=== PATIENT | female | born 1965 | race Caucasian/White ===

== ENCOUNTER 2024-08-04 13:29 | Emergency (ER) | payer OTHER ==
[2024-08-04] MEDS ORDERED: KETOROLAC 30 MG/ML INJ ONE (15:23)
[2024-08-04] MEDS ORDERED: dexAMETHasone 10 MG/ML VIAL ONE (15:23)
[2024-08-04] MEDS ORDERED: HYDROCODONE/APAP 5/325 MG TAB ONE (15:24)
--- NOTE | 2024-08-04 15:41 | RAD REPORT ---
EXAMINATION: CT LUMBAR SPINE WITHOUT CONTRAST CLINICAL INDICATION: Female, 59 years old. Lower back pain;Pain TECHNIQUE: Axial CT images were obtained through the lumbar spine in soft tissue and bone windows wit hout intravenous contrast. Coronal and Sagittal reformatted images were created from the data set. One or more of the following dose reduction techniques were used: Automated exposure control, adjustm ent of the mA and/ or kV according to patient size, and/or iterative reconstruction. Unless otherwise specified, incidental findings do not require dedicated imaging follow-up. COMPARISON: No prior exam. FINDINGS: For purposes of this dictation, it is assumed that there are 5 non rib-bearing lumbar type vertebrae, and the most caudal fully segmented lumbar vertebra is labeled L5. ALIGNMENT: The lumbar spine demonstrates normal alignment without scoliosis or spondylolisthesis. BONES: No significant soft tissue abnormalities. No aggressive osseous lesions. DISCS: Intervertebral disc space heights are maintained. LEVELS: Mild posterior disc bulging lower lumbar levels. 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 IMPRESSION: No acute lumbar spine abnormalities. Mild lower lumbar spondylosis. Nonemergent MRI lumbar spine follow-up would be suggested.
--- NOTE | 2024-08-04 16:57 | EDPHYS ---
Physician Documentation [facility] Name: Aubree Zimmer Age: 59 yrs Sex: Female : 1965 Arrival Date: 08/04/2024 Time: 13:29 Bed 18 Private MD: ED Physician Nikolay Gayle HPI: 08/04 16:37 This 59 yrs old Female presents to ER via Ambulatory with complaints of Hip Pain - rn right, Knee Pain - right. 16:37 The patient or guardian reports pain. Onset: The symptoms/episode began/occurred rn yesterday. Severity of symptoms: At their worst the symptoms were moderate, in the emergency department the symptoms are unchanged. The patient has experienced a previous episode. Patient reports low back pain that radiates to the right knee, no trauma or fall. No fever or chills. No injury at all. Has had sciatica on the left side, now having pain on the right side. No bowel or bladder issues. No weakness of lower extremities.. Historical: - Allergies: 14:38 ambien; ss 14:38 tramadol; ss 14:38 Trazodone; ss - PMHx: 14:38 acid reflux; Depression; ss - Immunization history:: Adult Immunizations unknown. - Infectious Disease History:: Denies. - Family history:: not pertinent. - Hospitalizations: : No recent hospitalization is reported. - Social history:: Smoking status: Patient denies any tobacco usage or history of. ROS: 16:37 Constitutional: Negative for fever, chills, and weight loss, Cardiovascular: Negative rn for chest pain, palpitations, and edema, Respiratory: Negative for shortness of breath, cough, wheezing, and pleuritic chest pain, Abdomen/GI: Negative for abdominal pain, nausea, vomiting, diarrhea, and constipation, Back: Positive for low back pain that radiates to the right knee MS/Extremity: Negative for injury and deformity, Exam: 16:55 Constitutional: This is a well developed, well nourished patient who is awake, alert, rn and in no acute distress. Back: No spinal tenderness. No costovertebral tenderness. Full range of motion. MS/ Extremity: Pulses equal, no cyanosis. Neurovascular intact. Full, normal range of motion. Equal circumference. Neuro: Awake and alert, GCS 15, oriented to person, place, time, and situation. Motor strength 5/5 in all extremities. Sensory grossly intact. Cerebellar exam normal. Vital Signs: 14:36 BP 126 / 95; Pulse 90; Resp 17; Temp 98.7(O); Pulse Ox 97% on R/A; Weight 63.5 kg; ss Height 5 ft. 3 in. ; Pain 9/10; 15:49 BP 103 / 57; Pulse 79; Resp 20; Pulse Ox 100% ; kj2 16:15 BP 105 / 58; Pulse 78; Resp 18; Pulse Ox 100% on R/A; kj2 17:06 BP 118 / 72; Pulse 76; Resp 18; Temp 98.2; Pulse Ox 100% on R/A; kj2 14:36 Body Mass Index 24.80 (63.50 kg, 160.02 cm) ss 14:36 Pain Scale: Adult ss MDM: 13:39 Medical Screening Exam initiated rn 16:55 Differential diagnosis: bursitis, arthritis, strain, Radiculopathy, sciatica. Data rn reviewed: vital signs, nurses notes, old medical records, radiologic studies, CT scan, and as a result, I will discharge patient. Counseling: I had a detailed discussion with the patient and/or guardian regarding the historical points, exam findings, and any diagnostic results supporting the discharge/admit diagnosis, radiology results, the need for outpatient follow up, to return to the emergency department if symptoms worsen or persist or if there are any questions or concerns that arise at home. Special discussion: I discussed with the patient/guardian in detail that at this point there is no indication for admission to the hospital. It is understood, however, that if the symptoms persist or worsen the patient needs to return immediately for re-evaluation. 08/04 14:42 Order name: CT Lumbar Spine Wo Con; Complete Time: 15:58 rn Administered Medications: 15:47 Drug: HYDROcodone-acetaminophen PO 5 mg-325 mg 1 tabs PO once Route: PO; kj2 17:07 Follow up: Response: No adverse reaction kj2 15:48 Drug: Ketorolac IM 30 mg IM once Route: IM; Site: left deltoid; kj2 17:07 Follow up: Response: No adverse reaction kj2 15:48 Drug: Dexamethasone IM 10 mg IM once Route: IM; Site: right deltoid; kj2 17:07 Follow up: Response: No adverse reaction kj2 Disposition Summary: 08/04/24 16:56 Discharge Ordered Notes: Location: Home rn Problem: new rn Symptoms: have improved rn Condition: Stable rn Diagnosis - Radiculopathy, lumbosacral region rn Followup: rn - With: Private Physician - When: As needed - Reason: Recheck today's complaints, Re-evaluation by your physician Discharge Instructions: - Discharge Summary Sheet rn - Lumbosacral Radiculopathy rn Forms: - Medication Reconciliation Form rn - Antibiotic collections attorney - Prescription Opioid Use rn - Patient Portal Instructions rn - Leadership Thank You Letter rn Prescriptions: - gabapentin 100 mg Oral capsule - take 1 capsule ORAL route 2 times per day As needed; 14 capsule; Refills: 0, rn Product Selection Permitted - Cyclobenzaprine 10 mg Oral tablet - take 1 tablet ORAL route every 8-12 hours As needed; 10 tablet; Refills: 0, rn Product Selection Permitted - Medrol ([place]) 4 mg Oral Tablets, Dose Pack - take 1 tablet ORAL route as directed - follow package instructions; 1 packet; rn Refills: 0, Product Selection Permitted Signatures: Dispatcher [employer] Nikolay Amaro MD MD rn Blanchard, Shelby, RN RN Corinne Schuster RN RN kj2
--- NOTE | 2024-08-04 16:57 | ER ---
Nurse's Notes [facility] Name: Aubree Zimmer Age: 59 yrs Sex: Female : 1965 Arrival Date: 08/04/2024 Time: 13:29 Bed 18 Private MD: Diagnosis: Radiculopathy, lumbosacral region Presentation: 08/04 14:37 Chief complaint: Patient states: Pain to R hip that radiates down to R knee that began ss this morning. Coronavirus screen: Client denies travel out of the [place] in the last 14 days. Ebola Screen: Patient denies exposure to infectious person. Patient denies travel to an Ebola-affected area in the 21 days before illness onset. Initial Sepsis Screen: Does the patient meet any 2 criteria? No. Patient's initial sepsis screen is negative. Does the patient have a suspected source of infection? No. Patient's initial sepsis screen is negative. Risk Assessment: Do you want to hurt yourself or someone else? Patient reports no desire to harm self or others. Onset of symptoms was August 04, 2024. 14:37 Method Of Arrival: Ambulatory ss 14:37 Acuity: HELIO 3 ss Historical: - Allergies: 14:38 ambien; ss 14:38 tramadol; ss 14:38 Trazodone; ss - PMHx: 14:38 acid reflux; Depression; ss - Immunization history:: Adult Immunizations unknown. - Infectious Disease History:: Denies. - Family history:: not pertinent. - Hospitalizations: : No recent hospitalization is reported. - Social history:: Smoking status: Patient denies any tobacco usage or history of. Screenin:34 [facility] ED Fall Risk Assessment (Adult) History of falling in the last 3 months, kj2 including since admission No falls in past 3 months (0 pts) Confusion or Disorientation No (0 pts) Intoxicated or Sedated No (0 pts) Impaired Gait No (0 pts) Mobility Assist Device Used No (0 pt) Altered Elimination No (0 pt) Score/Fall Risk Level 0 - 2 = Low Risk Maintained a safe environment, Hourly rounding (assess needs \T\ fall precautionary measures) done. Abuse screen: Denies threats or abuse. Denies injuries from another. Nutritional screening: No deficits noted. Tuberculosis screening: No symptoms or risk factors identified. Assessment: 15:15 General: Appears in no apparent distress. Behavior is calm, cooperative. Pain: kj2 Complains of pain in right hip Pain currently is 8 out of 10 on a pain scale. Neuro: Level of Consciousness is awake, alert, obeys commands, Oriented to person, place, time, situation. Cardiovascular: Patient's skin is warm and dry. Respiratory: Airway is patent Respiratory effort is even, unlabored. GI: No signs and/or symptoms were reported involving the gastrointestinal system. : No signs and/or symptoms were reported regarding the genitourinary system. 16:15 Reassessment: Patient appears in no apparent distress at this time. Patient and/or kj2 family updated on plan of care and expected duration. Pain level reassessed. Patient is alert, oriented x 3, equal unlabored respirations, skin warm/dry/pink. 17:06 Reassessment: Patient appears in no apparent distress at this time. Patient and/or kj2 family updated on plan of care and expected duration. Pain level reassessed. Patient is alert, oriented x 3, equal unlabored respirations, skin warm/dry/pink. Vital Signs: 14:36 BP 126 / 95; Pulse 90; Resp 17; Temp 98.7(O); Pulse Ox 97% on R/A; Weight 63.5 kg; ss Height 5 ft. 3 in. ; Pain 9/10; 15:49 BP 103 / 57; Pulse 79; Resp 20; Pulse Ox 100% ; kj2 16:15 BP 105 / 58; Pulse 78; Resp 18; Pulse Ox 100% on R/A; kj2 17:06 BP 118 / 72; Pulse 76; Resp 18; Temp 98.2; Pulse Ox 100% on R/A; kj2 14:36 Body Mass Index 24.80 (63.50 kg, 160.02 cm) ss 14:36 Pain Scale: Adult ss ED Course: 13:33 Patient arrived in ED. im 13:39 Nikolay Gayle MD is Attending Physician. rn 14:38 Triage completed. ss 14:38 Arm band placed on right wrist. ss 15:15 Patient has correct armband on for positive identification. Bed in low position. Call kj2 light in reach. Provided Education on: call light. 15:17 Corinne Roblero RN is Primary Nurse. kj2 15:33 CT Lumbar Spine Wo Con In Process Unspecified. EDMS 15:35 No provider procedures requiring assistance completed. kj2 Administered Medications: 15:47 Drug: HYDROcodone-acetaminophen PO 5 mg-325 mg 1 tabs PO once Route: PO; kj2 17:07 Follow up: Response: No adverse reaction kj2 15:48 Drug: Ketorolac IM 30 mg IM once Route: IM; Site: left deltoid; kj2 17:07 Follow up: Response: No adverse reaction kj2 15:48 Drug: Dexamethasone IM 10 mg IM once Route: IM; Site: right deltoid; kj2 17:07 Follow up: Response: No adverse reaction kj2 Medication: 15:34 VIS not applicable for this client. kj2 Outcome: 16:56 Discharge ordered by . rn 17:43 Patient left the ED. kj2 Signatures: Dispatcher [employer] EDMS Nikolay Gayle MD MD rn Blanchard, Shelby, RN RN Cadence Valdez Krystal, RN RN kj2
[2024-08-04 17:56] VITALS: O2SAT 100
[2024-08-04 17:58] VITALS: BP 118/72; TEMP 98.2
== END 2024-08-04 17:43 | disposition home or self-care (01) ==
LOC: ER 13:29
DX: M54.17 Radiculopathy, lumbosacral region (principal)
CPT/HCPCS: 72131; 96372; 99284; J1100

== ENCOUNTER 2024-10-13 12:07 | Emergency (ER) | payer OTHER, SELFPAY ==
--- OUTSIDE RECORDS SUMMARY | 2024-10-13 12:16 | XMS REPORT | Continuity of Care Document ---
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 noon and 1 capsule in the evening. [facility] NIACIN TR SUSTAINED RELEASE 500 mg SR tablet 3- 00:00: 00 09-26 00:00 :00 No [id number] TAKE 1 TABLET BY MOUTH EVERYDAY AT BEDTIME [facility] SERTraline 100 mg tablet 1-31 00:00: 00 12-16 00:00 :00 No [id number] TAKE 1 AND 1/2 TABLETS BY MOUTH DAILY [facility] omeprazole 40 mg capsule 2021-06 2-22 00:00: 00 Yes [id number] 40mg Take 1 capsule by mouth in the morning. [facility] PREGABALIN 25 mg capsule 2021-06 2-14 00:00: 00 09-16 00:00 :00 No [id number] TAKE 1 CAPSULE BY MOUTH THREE TIMES A DAY [facility] buPROPion XL 150 mg 24 hr tablet 2021-06 1-10 00:00: 00 09-16 00:00 :00 No [id number] 150mg Take 1 tablet by mouth in the morning. Need appt for further refills. [facility] DOXYCYCLINE HYCLATE 50 mg capsule 2021-06 0-13 00:00: 00 12-16 00:00 :00 No [id number] TAKE 1 CAPSULE BY MOUTH EVERY 12 HOURS. [facility] SERTraline 100 mg tablet 9-12 00:00: 00 07-26 00:00 :00 No [id number] TAKE 1 AND 1/2 TABLETS BY MOUTH DAILY [facility] omeprazole 40 mg capsule 7-27 00:00: 00 06-16 00:00 :00 No [id number] 40mg Take 1 capsule by mouth in the morning. [facility] pregabalin (LYRICA) 25 mg capsule 6-21 00:00: 00 06-08 00:00 :00 No [id number] 25mg Take 1 capsule by mouth 3 (three) times daily. [facility] cholestyram ine 4 gram powder 11-15 00:00: 00 12-16 00:00 :00 No [id number] Take 1 scoop QID, between meals [facility] buPROPion XL 150 mg 24 hr tablet 11-15 00:00: 00 05-05 00:00 :00 No [id number] 150mg Take 1 tablet by mouth daily. [facility] gabapentin 300 mg capsule 11-15 00:00: 00 12-14 00:00 :00 No [id number] 300mg Take 1 capsule by mouth 3 (three) times daily. [facility] fludrocorti sone 0.1 mg tablet -06 00:00: 00 12-16 00:00 :00 No [id number] .1mg Take 1 tablet by mouth daily. Appointmen t needed for further refills. Please contact office [facility] MIDODRINE 10 mg tablet 4-05 00:00: 00 12-16 00:00 :00 No [id number] TAKE 1 TABLET BY MOUTH THREE TIMES A DAY [facility] BUPROPION 75 mg tablet 4-04 00:00: 00 11-15 00:00 :00 No [id number] TAKE 1 TABLET BY MOUTH TWICE A DAY [facility] PROAIR HFA 90 mcg/actuati on inhaler 09-21 00:00: 00 Yes [id number] TAKE 2 PUFFS BY MOUTH EVERY 6 HOURS NEEDED FOR WHEEZE OR FOR SHORTNESS OF BREATH [facility] atorvastati n 20 mg tablet 08-31 00:00: 00 09-26 00:00 :00 No [id number] 20mg Take 1 tablet by mouth at bedtime. Take with supplement coq10, at least 100mg daily. [facility] omeprazole 40 mg capsule - 00:00: 00 01-19 00:00 :00 No [id number] 40mg Take 1 capsule by mouth daily. [facility] hydrOXYzine 50 mg tablet 08-25 00:00: 00 12-16 00:00 :00 No [id number] 50mg Take 1 tablet by mouth every 8 (eight) hours as needed for Anxiety. [facility] niacin 500 mg tablet 08-25 00:00: 00 08-24 00:00 :00 No [id number] 500mg Take 1 tablet by mouth at bedtime. [facility] SERTraline 100 mg tablet 08-25 00:00: 00 03-08 01:32 :38 No [id number] TAKE 1 AND 1/2 TABLETS BY MOUTH DAILY [facility] topiramate 50 mg tablet 08-25 00:00: 00 11-15 00:00 :00 No [id number] 50mg Take 1 tablet by mouth 2 (two) times daily. [facility] doxycycline hyclate 50 mg capsule 2- 00:00: 00 04-07 00:00 :00 No [id number] 50mg Take 1 capsule by mouth every 12 (twelve) hours. [facility] hydrOXYzine 50 mg capsule 2-03 12:45: 11 Yes 50mg Take 50 mg by mouth 3 (three) times daily as needed for Itching. [facility] Atropine Sulfate 10 MG/ML Ophthalmic Solution 11-29 16:50: 00 Yes 2 drp, LEFT EYE, BID, # 2 mL, 0 Refill(s), Pharmacy: [id number] Nicole Antony Bacitracin 0.5 UNT/MG / Polymyxin B 10 UNT/MG Topical Ointment 11-29 16:50: 00 Yes 1 appl, TOP, BID, apply to facial laceration s, # 15 gm, 0 Refill(s), Pharmacy: [facility] #[id number] Nicole Antony levofloxaci n 500 mg oral tablet 11-29 16:50: 00 No 500 mg = 1 tab, PO, Q24H, X 1 day, # 1 tab, 0 Refill(s), Pharmacy: [facility] #[id number] Nicole Antony moxifloxaci n 5 MG/ML Ophthalmic Solution [Vigamox] 11-29 16:50: 00 Yes 1 drp, LEFT EYE, QID, # 3 mL, 0 Refill(s), other Nicole Antony prednisolon e 10 MG/ML Ophthalmic Solution [Prednisol] 11-29 16:50: 00 Yes 1 drp, LEFT EYE, QID, # 5 mL, 0 Refill(s), other Nicole Antony Zoloft 11-29 14:00: 00 No Notes: (Same as: Zoloft) Nicole Antony Amitriptyli ne 11-29 02:00: 00 No Notes: (Same as: Elavil) Nicole Antony Trazodone 11-28 22:15: 00 No 50 mg, PO, Bedtime, 0 Refill(s) Nicole Antony Cyclobenzap rine hydrochlori de 10 MG Oral Tablet [Flexeril] 11-28 21:00: 00 No 10 mg = 1 tab, PO, Q8H, PRN as needed for muscle spasm, 0 Refill(s) Nicole Antony naproxen 500 mg oral tablet 11-28 21:00: 00 No 500 mg = 1 tab, PO, BID, PRN Pain Score 1-5, 0 Refill(s) Nicole Antony Sertraline 100 MG Oral Tablet [Zoloft] 11-28 21:00: 00 Yes 150 mg = 1.5 tab, PO, Daily, 0 Refill(s) Nicole Antony amitriptyli ne 75 mg oral tablet 11-28 21:00: 00 Yes 75 mg = 1 tab, PO, Bedtime, 0 Refill(s) Nicole Antony Flumazenil 11-28 19:22: 00 No 0.2 mg, Route: IVP, PRN, Dosing Weight 62.273, kg, PRN Benzodiaze pine Reversal, Initial dose, Start date: 11/28/16 14:22:00 CDT, Duration: 30 day, Stop date: 12/28/16 14:21:00 CDT Memkirsten Antony Hydromorpho ne 11-28 19:22: 00 No 0.5 mg, Route: IVP, Q5Min, Dosing Weight 62.273, kg, PRN Pain Score 7-10, Start date: 11/28/16 14:22:00 CDT, Duration: 4 doses or times, Stop date: Limited # of times Nicole Antony Naloxone 11-28 19:22: 00 No 0.4 mg, Route: IVP, Q2MIN, Dosing Weight 62.273, kg, PRN Narcotic Reversal, Start date: 11/28/16 14:22:00 CDT, Duration: 8 doses or times, Stop date: Limited # of times Nicole Antony famotidine (ANES) 11-28 17:47: 00 No Route: IV, Drug form: INJ, ONCE, Stop date: 11/28/16 12:47:00 CDT Memkirsten Antony rocuronium (ANES) 11-28 17:42: 00 No Route: IV, Drug form: INJ, ONCE, Stop date: 11/28/16 12:42:00 CDT Nicole henderson [place] fentaNYL (ANES) 11-28 17:42: 00 No Route: IV, Drug form: INJ, ONCE, Stop date: 11/28/16 12:42:00 CDT Nicole Antony lidocaine (ANES) 11-28 17:42: 00 No Route: IV, Drug form: INJ, ONCE, Stop date: 11/28/16 12:42:00 CDT Nicole Antony midazolam (ANES) 11-28 17:42: 00 No Route: IV, Drug form: SOLN, ONCE, Stop date: 11/28/16 12:42:00 CDT Nicole Antony propofol (ANES) 11-28 17:42: 00 No Route: IV, Drug form: INJ, ONCE, Stop date: 11/28/16 12:42:00 CDT Nicole Antony ketOROLAC 15 mg/mL injectable solution 11-28 17:00: 00 No 4 days. Nicole Antony LR 1000 mL INJ (ANES) 11-28 16:34: 00 No Route: IV, Total Volume: 1,000, Start date: 11/28/16 11:34:00 CDT, Stop date: 11/28/16 12:34:00 CDT Nicole beatriz Arpan Docusate 11-28 14:00: 00 No Notes: (Same as: ace) (Do Not Crush) Kirtkirsten beatriz Antony ranitidine 75 mg oral tablet 11-28 12:36: 00 No 75 mg = 1 tab, PO, Daily, 0 Refill(s) Kirtkirsten Linann Levaquin 11-28 12:00: 00 No Notes: (Same as:[place]) Nicole Linann Ondansetron 11-28 11:04: 00 No Notes: (Same as: Namita) MEDICATION WASTE Product Size: 4 mg Product Wasted: ___ mg Nicole henderson Arpan Acetaminoph en 325 MG / Hydrocodone Bitartrate 5 MG Oral Tablet 11-28 11:04: 00 No Notes: (Same as: [place] 325/5) Do not exceed 4gm/day of acetaminop hen. Kirtkirsten henderson Arpan D5W 1/2NS 1,000 mL 11-28 11:04: 00 No 1,000 mL, Rate: 75 ml/hr, Infuse over: 13.3 hr, Route: IV, Dosing Weight 61.364 kg, Total Volume: 1,000, Start date: 11/28/16 6:04:00 CDT, Duration: 30 day, Stop date: 12/28/16 6:03:00 CDT Nicole Antony Acetaminoph en 11-28 11:04: 00 No Notes: Max acetaminop hen 4000 mg/day (4 gm/day). (Same as: Tylenol Extra Strength) Nicole henderson Arpan moxifloxaci n 11-28 09:38: 00 No Notes: (Same as: Avelox) Nicole henderson Arpan Ceftriaxone 11-28 09:37: 00 No 1 gm, Route: IVPB, ONCE, Dosing Weight 61.364, kg, Priority: STAT, Start date: 11/28/16 4:37:00 CDT, Duration: 1 doses or times, Stop date: 11/28/16 4:37:00 CDT, ABX Indication : Urinary Tract Infection Nicole henderson Arpan Ketamine 11-28 08:01: 00 No 12 mg, 1.2 mL, Route: IV, Drug form: INJ, ONCE, Dosing Weight 61.364, kg, Priority: STAT, Start date: 11/28/16 3:01:00 CDT, Stop date: 11/28/16 3:01:00 CDT Nicole Antony Saline Flush 0.9% 11-28 03:29: 00 No Notes: (Same as: BD Posiflush) Nicole Antony Immunizations Ordered Immunization Name Filled Immunization Name Date Status Comments Source SARS-COV-2 COVID-19 PFIZER VACCINE 2021-05-03 00:00:00 Completed [facility] SARS-COV-2 COVID-19 PFIZER VACCINE 2021-05-03 00:00:00 Completed [facility] SARS-COV-2 COVID-19 PFIZER VACCINE 2021-05-03 00:00:00 Completed [facility] SARS-COV-2 COVID-19 PFIZER VACCINE 2021-05-03 00:00:00 Completed [facility] SARS-COV-2 COVID-19 PFIZER VACCINE 2021-05-03 00:00:00 Completed [facility] SARS-COV-2 COVID-19 PFIZER VACCINE 2021-05-03 00:00:00 Completed [facility] SARS-COV-2 COVID-19 PFIZER VACCINE 2021-05-03 00:00:00 Completed [facility] SARS-COV-2 COVID-19 PFIZER VACCINE 2021-05-03 00:00:00 Completed [facility] SARS-COV-2 COVID-19 PFIZER VACCINE 2021-05-03 00:00:00 Completed [facility] SARS-COV-2 COVID-19 PFIZER VACCINE 2021-05-03 00:00:00 Completed [facility] SARS-COV-2 COVID-19 PFIZER VACCINE 2021-05-03 00:00:00 Completed [facility] SARS-COV-2 COVID-19 PFIZER VACCINE 2021-05-03 00:00:00 Completed [facility] SARS-COV-2 COVID-19 PFIZER VACCINE 2021-05-03 00:00:00 Completed [facility] SARS-COV-2 COVID-19 PFIZER VACCINE 2021-05-03 00:00:00 Completed [facility] SARS-COV-2 COVID-19 PFIZER VACCINE 2021-05-03 00:00:00 Completed [facility] SARS-COV-2 COVID-19 PFIZER VACCINE 2021-05-03 00:00:00 Completed [facility] SARS-COV-2 COVID-19 PFIZER VACCINE 2021-05-03 00:00:00 Completed [facility] SARS-COV-2 COVID-19 PFIZER VACCINE 2021-05-03 00:00:00 Completed [facility] SARS-COV-2 COVID-19 PFIZER VACCINE 2021-05-03 00:00:00 Completed [facility] SARS-COV-2 COVID-19 PFIZER VACCINE 2021-05-03 00:00:00 Completed [facility] SARS-COV-2 COVID-19 PFIZER VACCINE 2021-05-03 00:00:00 Completed [facility] SARS-COV-2 COVID-19 PFIZER VACCINE 2021-05-03 00:00:00 Completed [facility] SARS-COV-2 COVID-19 PFIZER VACCINE 2021-05-03 00:00:00 Completed [facility] SARS-COV-2 COVID-19 PFIZER VACCINE 2021-05-03 00:00:00 Completed [facility] SARS-COV-2 COVID-19 PFIZER VACCINE 2021-05-03 00:00:00 Completed [facility] SARS-COV-2 COVID-19 PFIZER VACCINE 2021-05-03 00:00:00 Completed [facility] SARS-COV-2 COVID-19 PFIZER VACCINE 2021-05-03 00:00:00 Completed [facility] SARS-COV-2 COVID-19 PFIZER VACCINE 2021-05-03 00:00:00 Completed [facility] SARS-COV-2 COVID-19 PFIZER VACCINE 2021-05-03 00:00:00 Completed [facility] SARS-COV-2 COVID-19 PFIZER VACCINE 2021-05-03 00:00:00 Completed [facility] SARS-COV-2 COVID-19 PFIZER VACCINE 2021-05-03 00:00:00 Completed [facility] SARS-COV-2 COVID-19 PFIZER VACCINE 2021-05-03 00:00:00 Completed [facility] SARS-COV-2 COVID-19 PFIZER VACCINE 2021-05-03 00:00:00 Completed [facility] SARS-COV-2 COVID-19 PFIZER VACCINE 2021-05-03 00:00:00 Completed [facility] SARS-COV-2 COVID-19 PFIZER VACCINE 2021-05-03 00:00:00 Completed [facility] SARS-COV-2 COVID-19 PFIZER VACCINE 2021-05-03 00:00:00 Completed [facility] SARS-COV-2 COVID-19 PFIZER VACCINE 2021-05-03 00:00:00 Completed [facility] SARS-COV-2 COVID-19 PFIZER VACCINE 2021-05-03 00:00:00 Completed SARS-COV-2 COVID-19 PFIZER VACCINE 2021-04-12 00:00:00 Completed [facility] SARS-COV-2 COVID-19 PFIZER VACCINE 2021-04-12 00:00:00 Completed [facility] SARS-COV-2 COVID-19 PFIZER VACCINE 2021-04-12 00:00:00 Completed [facility] SARS-COV-2 COVID-19 PFIZER VACCINE 2021-04-12 00:00:00 Completed [facility] SARS-COV-2 COVID-19 PFIZER VACCINE 2021-04-12 00:00:00 Completed [facility] SARS-COV-2 COVID-19 PFIZER VACCINE 2021-04-12 00:00:00 Completed [facility] SARS-COV-2 COVID-19 PFIZER VACCINE 2021-04-12 00:00:00 Completed [facility] SARS-COV-2 COVID-19 PFIZER VACCINE 2021-04-12 00:00:00 Completed [facility] SARS-COV-2 COVID-19 PFIZER VACCINE 2021-04-12 00:00:00 Completed [facility] SARS-COV-2 COVID-19 PFIZER VACCINE 2021-04-12 00:00:00 Completed [facility] SARS-COV-2 COVID-19 PFIZER VACCINE 2021-04-12 00:00:00 Completed [facility] SARS-COV-2 COVID-19 PFIZER VACCINE 2021-04-12 00:00:00 Completed [facility] SARS-COV-2 COVID-19 PFIZER VACCINE 2021-04-12 00:00:00 Completed [facility] SARS-COV-2 COVID-19 PFIZER VACCINE 2021-04-12 00:00:00 Completed [facility] SARS-COV-2 COVID-19 PFIZER VACCINE 2021-04-12 00:00:00 Completed [facility] SARS-COV-2 COVID-19 PFIZER VACCINE 2021-04-12 00:00:00 Completed [facility] SARS-COV-2 COVID-19 PFIZER VACCINE 2021-04-12 00:00:00 Completed [facility] SARS-COV-2 COVID-19 PFIZER VACCINE 2021-04-12 00:00:00 Completed [facility] SARS-COV-2 COVID-19 PFIZER VACCINE 2021-04-12 00:00:00 Completed [facility] SARS-COV-2 COVID-19 PFIZER VACCINE 2021-04-12 00:00:00 Completed [facility] SARS-COV-2 COVID-19 PFIZER VACCINE 2021-04-12 00:00:00 Completed [facility] SARS-COV-2 COVID-19 PFIZER VACCINE 2021-04-12 00:00:00 Completed [facility] SARS-COV-2 COVID-19 PFIZER VACCINE 2021-04-12 00:00:00 Completed [facility] SARS-COV-2 COVID-19 PFIZER VACCINE 2021-04-12 00:00:00 Completed [facility] SARS-COV-2 COVID-19 PFIZER VACCINE 2021-04-12 00:00:00 Completed [facility] SARS-COV-2 COVID-19 PFIZER VACCINE 2021-04-12 00:00:00 Completed [facility] SARS-COV-2 COVID-19 PFIZER VACCINE 2021-04-12 00:00:00 Completed [facility] SARS-COV-2 COVID-19 PFIZER VACCINE 2021-04-12 00:00:00 Completed [facility] SARS-COV-2 COVID-19 PFIZER VACCINE 2021-04-12 00:00:00 Completed [facility] SARS-COV-2 COVID-19 PFIZER VACCINE 2021-04-12 00:00:00 Completed [facility] SARS-COV-2 COVID-19 PFIZER VACCINE 2021-04-12 00:00:00 Completed [facility] SARS-COV-2 COVID-19 PFIZER VACCINE 2021-04-12 00:00:00 Completed [facility] SARS-COV-2 COVID-19 PFIZER VACCINE 2021-04-12 00:00:00 Completed [facility] SARS-COV-2 COVID-19 PFIZER VACCINE 2021-04-12 00:00:00 Completed [facility] SARS-COV-2 COVID-19 PFIZER VACCINE 2021-04-12 00:00:00 Completed [facility] SARS-COV-2 COVID-19 PFIZER VACCINE 2021-04-12 00:00:00 Completed [facility] SARS-COV-2 COVID-19 PFIZER VACCINE 2021-04-12 00:00:00 Completed [facility] SARS-COV-2 COVID-19 PFIZER VACCINE 2021-04-12 00:00:00 Completed [facility] Td 2009-06-26 00:00:00 Completed [facility] Td 2009-06-26 00:00:00 Completed [facility] Td 2009-06-26 00:00:00 Completed [facility] Td 2009-06-26 00:00:00 Completed [facility] Td 2009-06-26 00:00:00 Completed [facility] Td 2009-06-26 00:00:00 Completed [facility] Td 2009-06-26 00:00:00 Completed [facility] Td 2009-06-26 00:00:00 Completed [facility] Td 2009-06-26 00:00:00 Completed [facility] Td 2009-06-26 00:00:00 Completed [facility] TD, NOS 2009-06-26 00:00:00 Completed [facility] TD, NOS 2009-06-26 00:00:00 Completed [facility] TD, NOS 2009-06-26 00:00:00 Completed [facility] TD, NOS 2009-06-26 00:00:00 Completed [facility] TD, NOS 2009-06-26 00:00:00 Completed [facility] TD, NOS 2009-06-26 00:00:00 Completed [facility] TD, NOS 2009-06-26 00:00:00 Completed [facility] TD, NOS 2009-06-26 00:00:00 Completed [facility] TD, NOS 2009-06-26 00:00:00 Completed [facility] TD, NOS 2009-06-26 00:00:00 Completed [facility] TD, NOS 2009-06-26 00:00:00 Completed [facility] TD, NOS 2009-06-26 00:00:00 Completed [facility] TD, NOS 2009-06-26 00:00:00 Completed [facility] TD, NOS 2009-06-26 00:00:00 Completed [facility] TD, NOS 2009-06-26 00:00:00 Completed [facility] TD, NOS 2009-06-26 00:00:00 Completed [facility] TD, NOS 2009-06-26 00:00:00 Completed [facility] TD, NOS 2009-06-26 00:00:00 Completed [facility] TD, NOS 2009-06-26 00:00:00 Completed [facility] TD, NOS 2009-06-26 00:00:00 Completed [facility] TD, NOS 2009-06-26 00:00:00 Completed [facility] TD, NOS 2009-06-26 00:00:00 Completed [facility] TD, NOS 2009-06-26 00:00:00 Completed [facility] TD, NOS 2009-06-26 00:00:00 Completed [facility] TD, NOS 2009-06-26 00:00:00 Completed [facility] TD, NOS 2009-06-26 00:00:00 Completed [facility] TD, NOS 2009-06-26 00:00:00 Completed [facility] TD, NOS 2009-06-26 00:00:00 Completed H1n1 Vaccine 2009-05-25 00:00:00 Completed [facility] H1n1 Vaccine 2009-05-25 00:00:00 Completed [facility] H1n1 Vaccine 2009-05-25 00:00:00 Completed [facility] H1n1 Vaccine 2009-05-25 00:00:00 Completed [facility] H1n1 Vaccine 2009-05-25 00:00:00 Completed [facility] H1n1 Vaccine 2009-05-25 00:00:00 Completed [facility] H1n1 Vaccine 2009-05-25 00:00:00 Completed [facility] H1n1 Vaccine 2009-05-25 00:00:00 Completed [facility] H1n1 Vaccine 2009-05-25 00:00:00 Completed [facility] H1n1 Vaccine 2009-05-25 00:00:00 Completed [facility] H1n1 Vaccine 2009-05-25 00:00:00 Completed [facility] H1n1 Vaccine 2009-05-25 00:00:00 Completed [facility] H1n1 Vaccine 2009-05-25 00:00:00 Completed [facility] H1n1 Vaccine 2009-05-25 00:00:00 Completed [facility] H1n1 Vaccine 2009-05-25 00:00:00 Completed [facility] H1n1 Vaccine 2009-05-25 00:00:00 Completed [facility] H1n1 Vaccine 2009-05-25 00:00:00 Completed [facility] H1n1 Vaccine 2009-05-25 00:00:00 Completed [facility] H1n1 Vaccine 2009-05-25 00:00:00 Completed [facility] H1n1 Vaccine 2009-05-25 00:00:00 Completed [facility] H1n1 Vaccine 2009-05-25 00:00:00 Completed [facility] H1n1 Vaccine 2009-05-25 00:00:00 Completed [facility] H1n1 Vaccine 2009-05-25 00:00:00 Completed [facility] H1n1 Vaccine 2009-05-25 00:00:00 Completed [facility] H1n1 Vaccine 2009-05-25 00:00:00 Completed [facility] H1n1 Vaccine 2009-05-25 00:00:00 Completed [facility] TD, NOS Unknown Completed [facility] SARS-COV-2 COVID-19 PFIZER VACCINE Unknown Completed [facility] H1n1 Vaccine Unknown [facility]pleted [facility] TD, NOS Unknown Completed [facility] SARS-COV-2 COVID-19 PFIZER VACCINE Unknown Completed [facility] H1n1 Vaccine Unknown Completed [facility] TD, NOS Unknown Completed [facility] SARS-COV-2 COVID-19 PFIZER VACCINE Unknown Completed [facility] H1n1 Vaccine Unknown Completed [facility] TD, NOS Unknown Completed [facility] SARS-COV-2 COVID-19 PFIZER VACCINE Unknown Completed [facility]ine [facility] SARS-COV-2 COVID-19 PFIZER VACCINE Unknown Completed [facility] [facility] H1n1 Vaccine Unknown [facility], [facility] SARS-COV-2 COVID-19 PFIZER VACCINE Unknown Completed [facility] H1n1 Vaccine Unknown Completed Univers [facility] TD, NOS Unknown Completed [facility] SARS-COV-2 COVID-19 PFIZER VACCINE Unknown Completed [facility] H1n1 Vaccine Unknown [facility] Completed [facility] SARS-COV-2 COVID-19 PFIZER VACCINE Unknown Completed [facility] H1n1 Vaccine Unknown Completed [facility] TD, NOS Unknown Completed [facility] SARS-COV-2 COVID-19 PFIZER VACCINE Unknown Completed [facility] H1n1 Vaccine Unknown Completed [facility] TD, NOS Unknown Completed [facility] SARS-COV-2 COVID-19 PFIZER VACCINE Unknown Completed [facility] H1n1 Vaccine Unknown Completed [facility] TD, NOS Unknown Completed [facility] H1n1 Vaccine Unknown [facility], [facility] Completed [facility] H1n1 Vaccine Unknown Completed [facility] SARS-COV-2 COVID-19 PFIZER VACCINE Unknown Completed [facility] H1n1 Vaccine Unknown [facility]OV[facility] COVID-19 PFIZER VACCINE Unknown Completed [facility] H1n1 Vaccine Unknown Completed [facility], NOS Unknown Completed [facility] TD, NOS Unknown Completed [facility] TD, NOS Unknown Completed [facility] SARS-COV-2 COVID-19 PFIZER VACCINE Unknown Completed [facility] H1n1 Vaccine Unknown Completed [facility] SARS-COV-2 COVID-19 PFIZER VACCINE Unknown Completed [facility] H1n1 Vaccine Unknown Completed [facility], NOS Unknown Completed [facility] TD, NOS Unknown Completed [facility] SARS-COV-2 COVID-19 PFIZER VACCINE Unknown Completed [facility] H1n1 Vaccine Unknown Completed [facility], N[facility] Unknown Completed [facility] H1n1 Vaccine Unknown Completed Univers [facility] SARS-COV-2 COVID-19 PFIZER VACCINE Unknown Completed [facility] TD, NOS Unknown Completed [facility] SARS-COV-2 COVID-19 PFIZER VACCINE Unknown Completed [facility] H1n1 Vaccine Unknown Completed Univers [facility] TD, NOS Unknown Completed [facility] SARS-COV-2 COVID-19 PFIZER VACCINE Unknown Completed [facility] H1n1 Vaccine Unknown Completed [facility], NOS Unknown Completed [facility] SARS-COV-2 COVID-19 PFIZER VACCINE Unknown Completed [facility] H1n1 Vaccine Unknown Completed [facility], NOS Unknown Completed [facility] SARS-COV-2 COVID-19 PFIZER VACCINE Unknown Completed [facility] H1n1 Vaccine Unknown Completed [facility] TD, NOS Unknown Completed [facility] SARS-COV-2 COVID-19 PFIZER VACCINE Unknown Completed [facility] H1n1 Vaccine Unknown Completed [facility] TD, NOS Unknown Completed [facility] SARS-COV-2 COVID-19 PFIZER VACCINE Unknown Completed [facility] H1n1 Vaccine Unknown Completed [facility] TD, NOS Unknown Completed [facility] SARS-COV-2 COVID-19 PFIZER VACCINE Unknown Completed [facility] H1n1 Vaccine Unknown Completed [facility] TD, NOS Unknown Completed [facility] SARS-COV-2 COVID-19 PFIZER VACCINE Unknown Completed [facility] H1n1 Vaccine Unknown Completed [facility] Covid-19 Vaccine (Pfizer), Mrna-lnp, Medhat Protein, Pf, 30mcg/0.3ml,IM Unknown Completed Kishanicole Garcíaol d - External Td- Tetanus & Diphtheria Vaccine (age 7+ years) Unknown Completed Kisha Diazybol d - External [id number] Unknown Completed Kisha Sedalila bold - External Covid-19 Vaccine (Pfizer), Mrna-lnp, Medhat Protein, Pf, 30mcg/0.3ml,IM Unknown Completed Kishanicole Garcíaol d - External Td- Tetanus & Diphtheria Vaccine (age 7+ years) Unknown Completed Kisha Garcíaol d - External [id number] Unknown Completed Kisha Pool bold - External Vital Signs Vital Name Observation Time Observation Value Comments S ource Systolic blood pressure 2023-12-29 14:39:00 124 mm[Hg] Kisha Seybo ld - External Diastolic blood pressure 2023-12-29 14:39:00 78 mm[Hg] Kishanicole Garcíao ld - External Heart rate 2023-12-29 14:39:00 88 /min Kamar conner Seybold - External Body temperature 2023-12-29 14:39:00 36.83 Nina Kisha ybold - External Respiratory rate 2023-12-29 14:39:00 18 /min Kisha ybold - External Body height 2023-12-29 14:39:00 162.6 cm Jessica garcia Seybold - External Body weight 2023-12-29 14:39:00 70.364 kg Jessica garcia Seybold - External BMI 2023-12-29 14:39:00 26.63 kg/m2 Jessica garcia ybold - External Oxygen saturation in Arterial blood by Pulse oximetry 2023-12-29 14:39:00 95 /min Kisha Raquelo ld - External Systolic blood pressure 2023-11-28 14:40:00 122 mm[Hg] Kisha Garcíao ld - External Diastolic blood pressure 2023-11-28 14:40:00 78 mm[Hg] Kisha Garcíao ld - External Heart rate 2023-11-28 14:40:00 84 /min Kamar Mcmahon - External Body temperature 2023-11-28 14:40:00 36.61 Nina Kisha Diazybold - External Respiratory rate 2023-11-28 14:40:00 18 /min Kisha Garcíaold - External Body height 2023-11-28 14:40:00 162.6 cm Jessica garcia Seybold - External Body weight 2023-11-28 14:40:00 70.761 kg Jessica garcia Seybold - External BMI 2023-11-28 14:40:00 26.78 kg/m2 Jessica garcia Seybold - External Oxygen saturation in Arterial blood by Pulse oximetry 2023-11-28 14:40:00 98 /min Kisha Infante ld - External Systolic blood pressure 2023-04-20 18:01:00 116 mm[Hg] [facility] Diastolic blood pressure 2023-04-20 18:01:00 67 mm[Hg] [facility] Heart rate 2023-04-20 18:01:00 85 /min [facility] Body temperature 2023-04-20 18:01:00 36.89 Nina [facility] Respiratory rate 2023-04-20 18:01:00 18 /min [facility] Body weight 2023-04-20 18:01:00 67.132 kg [facility] BMI 2023-04-20 18:01:00 25.40 kg/m2 [facility] Body weight 2023-04-06 15:05:00 67.132 kg [facility] BMI 2023-04-06 15:05:00 25.40 kg/m2 [facility] Systolic blood pressure 2023-03-22 14:20:00 121 mm[Hg] [facility] Diastolic blood pressure 2023-03-22 14:20:00 61 mm[Hg] [facility] Heart rate 2023-03-22 14:20:00 86 /min [facility] Body temperature 2023-03-22 14:20:00 36.67 Nina [facility] Body height 2023-03-22 14:20:00 162.6 cm [facility] Body weight 2023-03-22 14:20:00 67.314 kg [facility] BMI 2023-03-22 14:20:00 25.47 kg/m2 [facility] Oxygen saturation in Arterial blood by Pulse oximetry 2023-03-22 14:20:00 96 /min [facility] Systolic blood pressure 2023-03-13 15:24:00 129 mm[Hg] [facility] Diastolic blood pressure 2023-03-13 15:24:00 79 mm[Hg] [facility] Heart rate 2023-03-13 15:24:00 87 /min [facility] Body height 2023-03-13 15:24:00 160 cm [facility] Body weight 2023-03-13 15:24:00 68.765 kg [facility] BMI 2023-03-13 15:24:00 26.85 kg/m2 [facility] Oxygen saturation in Arterial blood by Pulse oximetry 2023-03-13 15:24:00 94 /min [facility] Systolic blood pressure 2022-12-23 20:52:00 131 mm[Hg] [facility] Diastolic blood pressure 2022-12-23 20:52:00 74 mm[Hg] [facility] Heart rate 2022-12-23 20:52:00 73 /min [facility] Body temperature 2022-12-23 20:52:00 37.06 Nina [facility] Body height 2022-12-23 20:52:00 162.6 cm [facility] Body weight 2022-12-23 20:52:00 67.586 kg [facility] BMI 2022-12-23 20:52:00 25.58 kg/m2 [facility] Oxygen saturation in Arterial blood by Pulse oximetry 2022-12-23 20:52:00 95 /min [facility] Systolic blood pressure 2022-12-16 13:22:00 107 mm[Hg] [facility] Diastolic blood pressure 2022-12-16 13:22:00 67 mm[Hg] [facility] Heart rate 2022-12-16 13:22:00 70 /min [facility] Body temperature 2022-12-16 13:22:00 36 Nina [facility] Body height 2022-12-16 13:22:00 160 cm [facility] Body weight 2022-12-16 13:22:00 67.858 kg [facility] BMI 2022-12-16 13:22:00 26.50 kg/m2 [facility] Oxygen saturation in Arterial blood by Pulse oximetry 2022-12-16 13:22:00 96 /min [facility] Systolic blood pressure 2022-09-16 15:03:00 110 mm[Hg] [facility] Diastolic blood pressure 2022-09-16 15:03:00 69 mm[Hg] [facility] Heart rate 2022-09-16 15:03:00 71 /min [facility] Systolic blood pressure 2021-12-14 14:28:00 109 mm[Hg] [facility] Diastolic blood pressure 2021-12-14 14:28:00 68 mm[Hg] [facility] Heart rate 2021-12-14 14:28:00 56 /min Un[facility] Body height 2021-12-14 14:28:00 160 cm [facility] Body weight 2021-12-14 14:28:00 67.586 kg [facility] BMI 2021-12-14 14:28:00 26.39 kg/m2 [facility] Oxygen saturation in Arterial blood by Pulse oximetry 2021-12-14 14:28:00 98 /min [facility] Systolic (mm Hg) 2016-11-29 16:41:00 [facility] Diastolic (mm Hg) 2016-11-29 16:41:00 [facility] Temperature Oral (F) 2016-11-29 16:41:00 97.1 F [facility] Heart Rate 2016-11-29 16:41:00 [facility] Respitory Rate 2016-11-29 16:41:00 [facility] Heart Rate 2016-11-29 12:57:00 [facility] Respitory Rate 2016-11-29 12:57:00 [facility] Systolic (mm Hg) 2016-11-29 12:57:00 [facility] Diastolic (mm Hg) 2016-11-29 12:57:00 [facility] Temperature Oral (F) 2016-11-29 12:57:00 96.9 F [facility] Temperature Oral (F) 2016-11-29 10:02:00 97.2 F [facility] Respitory Rate 2016-11-29 10:02:00 [facility] Heart Rate 2016-11-29 10:02:00 [facility] Systolic (mm Hg) 2016-11-29 10:02:00 [facility] Diastolic (mm Hg) 2016-11-29 10:02:00 [facility] BMI Calculated 2016-11-28 12:30:00 [facility] Weight 2016-11-28 12:30:00 [facility] Height 2016-11-28 12:30:00 162.56 cm [facility] Height 2016-11-28 03:03:00 160.02 cm [facility] BMI Calculated 2016-11-28 03:03:00 [facility] Weight 2016-11-28 03:03:00 [facility] Procedures Procedure Date / Time Performed Performing Clinician Source PAP SMEAR-LIQUID BASED-CP 2023-04-20 19:15:00 Azul Ricketts [facility] MR LUMBAR SPINE WO CONTRAST 2023-01-12 18:20:26 Anu Brian [facility] MR CERVICAL SPINE WO CONTRAST 2023-01-12 18:03:16 Anu Brian [facility] BI ULTRASOUND BREAST COMPLETE BILATERAL 2023-01-11 18:22:17 Juan Diego Wilson [facility] BI DIAGNOSTIC TOMOSYNTHESIS BILATERAL 2023-01-11 17:58:16 Juan Diego Wilson [facility] CONSENT/REFUSAL FOR DIAGNOSIS AND TREATMENT 2023-01-11 17:02:59 Doctor Unassigned, [place] [facility] VITAMIN D, 25-OH 2022-12-16 14:44:00 Anu Brian [facility] ASSIGNMENT OF BENEFITS 2022-09-16 14:45:32 Docto r Unassigned, [place] [facility] MEDICATION CORRESPONDENCE 2022-06-13 06:01:00 Do ctor Unassigned, [place] [facility] Abdominal hysterectomy [facility] Caesarean section [facility] Encounters Start Date/Time End Date/Time Encounter Type Admission Type Attending Clinicians Care Facility Care Department Encounter ID Source 2021-04-27 09:24:46 Outpatient R CHASITY TRAORE [facility] TIARA [id number] [facility] 2021-04-26 07:05:12 Outpatient TED CASTELLANOS [facility] GIE [id number] [facility] 2024-08-26 11:30:00 2024-08-26 11:30:00 Outpatient CARLYLE HARO [id number] [facility] 2015-01-20 00:00:00 2024-08-10 04:26:53 Orders Only Chely Millan Dee A [facility] 1.2.840.114 350.1.13.10 4.2.7.2.686 [id number] [facility] 2024-07-26 16:00:00 2024-07-26 16:00:00 Outpatient [facility]RISTINA HART [id number] [facility] 2024-07-19 10:00:00 2024-07-19 10:00:00 Outpatient CHRISTINA HART [id number] [facility] 2024-07-10 00:00:00 2024-07-10 00:00:00 Outpatient CARLYLE HARO [id number] [facility]ourt[facility] 2024-06-12 12:00:00 2024-06-12 12:00:00 Outpatient KISHA SANCHEZ [id number] [facility] Diazold 2024-05-09 00:00:00 2024-05-14 14:08:26 RefMelonie Armenta [facility] 1.2.840.114 350.1.13.10 4.2.7.2.686 [id number] [facility] 2024-05-06 14:00:00 2024-05-06 14:00:00 Outpatient CARLYLE HARO [id number] [facility] 2024-05-03 00:00:00 2024-05-03 00:00:00 Outpatient CARLYLE HARO [id number] [facility] 2024-05-02 10:40:00 2024-05-02 10:40:00 Outpatient AVI KISHA SANCHEZ [id number] [facility] 2024-04-29 00:00:00 2024-04-29 00:00:00 Outpatient CARLYLE HARO [id number] [facility] 2024-04-26 10:40:00 2024-04-26 10:40:00 Outpatient BRANDON SRUTHICarlos SANCHEZ [id number] [facility] 2024-04-19 00:00:00 2024-04-19 00:00:00 Outpatient CARLYLE HARO [id number] [facility] 2024-04-16 00:00:00 2024-04-16 00:00:00 Outpatient RACH PARK [id number] [facility] 2024-04-10 09:15:00 2024-04-10 09:15:00 Outpatient SOHAIL THAKKAR [id number] [facility] 2024-04-05 12:40:00 2024-04-05 12:40:00 Outpatient KISHA SANCHEZ [id number] [facility] 2024-04-05 00:00:00 2024-04-05 00:00:00 [facility] [id number] [facility] 2024-04-01 09:00:00 2024-04-01 09:00:00 Outpatient CARLYLE HARO KISHA [id number] [facility] 2024-03-27 13:00:00 2024-03-27 13:00:00 Outpatient SUZIE HERNANDEZ KISHA [id number] [facility] 2024-02-18 00:00:00 2024-02-18 00:00:00 Outpatient CARLYLE HARO KISHA [id number] [facility] 2024-02-11 00:00:00 2024-02-12 19:42:16 Anu Finley [facility] 1.2.840.114 350.1.13.10 4.2.7.2.686 [id number] [facility] 2024-02-12 00:00:00 2024-02-12 00:00:00 Outpatient RACH PARK KISHA SANCHEZ [id number] [facility] 2024-02-06 00:00:00 2024-02-06 00:00:00 Outpatient RACH PARK KISHA SANCHEZ [id number] [facility] 2024-02-06 00:00:00 2024-02-06 00:00:00 Outpatient CARLYLE HARONICOLE SANCHEZ [id number] [facility] 2024-02-05 00:00:00 2024-02-05 00:00:00 Outpatient CARLYLE HARO KISHA SANCHEZ [id number] [facility] 2024-01-15 00:00:00 2024-01-15 00:00:00 Outpatient RACH PARK KISHA SANCHEZ [id number] [facility] 2024-01-11 00:00:00 2024-01-11 00:00:00 Outpatient RACH PARK KISHA SANCHEZ [id number] [facility] 2024-01-08 00:00:00 2024-01-08 00:00:00 Outpatient CARLYLE HARO KISHA SANCHEZ [id number] [facility] 2023-12-29 11:05:00 2023-12-29 11:05:00 Outpatient AVI SANCHEZ [id number] [facility] 2023-12-29 10:00:00 2023-12-29 10:00:00 Outpatient CARLYLE HARO KISHA [id number] [facility] 2023-12-29 00:00:00 2023-12-29 00:00:00 Outpatient RCAH PARK KISHA [id number] [facility] 2023-11-30 00:00:00 2023-11-30 00:00:00 Outpatient RACH PARK KISHA [id number] [facility] 2023-11-28 15:45:00 2023-11-28 15:45:00 Outpatient GERRYJERRELL FLOWERS KISHA SANCHEZ [id number] [facility] 2023-11-28 09:30:00 2023-11-28 09:30:00 Outpatient CARLYLE HARO KISHA KISHA [id number] [facility] 2023-11-28 00:00:00 2023-11-28 00:00:00 Outpatient RACH PARK KISHA [id number] [facility] 2023-11-13 00:00:00 2023-11-15 14:10:22 Anu Finley [facility] 1.2.840.114 350.1.13.10 4.2.7.2.686 [id number] [facility] 2023-10-19 15:30:00 2023-10-19 15:30:00 Outpatient CARLYLE HARO KISHA SANCHEZ [id number] [facility] 2023-09-15 15:40:00 2023-09-15 15:40:00 Outpatient ANU DOOLEY [place] [id number] [facility] 2023-09-11 09:00:00 2023-09-11 09:00:00 Outpatient EMMA PACE [place] [id number] [facility] 2023-08-22 10:30:00 2023-08-22 10:30:00 Outpatient R [place] [id number] [facility] 2023-07-27 15:30:00 2023-07-27 15:30:00 Outpatient CARLYLE HARO [id number] [facility] Mcmahon 2023-07-24 00:00:00 2023-07-24 00:00:00 Telephone Anu Brian [facility] 1.2.840.114 350.1.13.10 4.2.7.2.686 [id number] [facility] 2023-06-29 00:00:00 2023-06-29 00:00:00 Telephone Anu Brian [facility] 1.2.840.114 350.1.13.10 4.2.7.2.686 [id number] [facility] 2023-06-27 00:00:00 2023-06-27 00:00:00 Refill Melonie Ricketts [facility] 1.2.840.114 350.1.13.10 4.2.7.2.686 [id number] [facility] 2023-06-27 00:00:00 2023-06-27 00:00:00 Refill Juan Diego Wilson [facility] 1.2.840.114 350.1.13.10 4.2.7.2.686 [id number] [facility] 2023-06-27 00:00:00 2023-06-27 00:00:00 Refill Anu Brian [facility] 1.2.840.114 350.1.13.10 4.2.7.2.686 [id number] [facility] 2023-06-21 10:00:00 2023-06-21 10:00:00 Outpatient R ANU BRIAN [place] [id number] [facility] 2023-06-14 08:15:00 2023-06-14 08:15:00 Outpatient R [place] [id number] [facility] 2023-05-22 00:00:00 2023-05-22 00:00:00 Telephone Anu Brian [facility] 1.2.840.114 350.1.13.10 4.2.7.2.686 [id number] [facility] 2023-05-16 00:00:00 2023-05-16 00:00:00 Telephone Cornelio Luther [facility] 1.2.840.114 350.1.13.10 4.2.7.2.686 [id number] [facility] 2023-04-23 00:00:00 2023-04-23 00:00:00 Outpatient GC_GCBZW_Ka diyala_S PRIV PRIV [id number] [facility] 2023-04-20 13:30:00 2023-04-20 14:34:32 Outpatient R MELONIE RICKETTS [place] [id number] [facility] 2023-04-20 13:30:00 2023-04-20 14:34:32 Office Visit TonyMelonie corrigan Beatriz [facility] 1.2.840.114 350.1.13.10 4.2.7.2.686 [id number] [facility] 2023-04-17 00:00:00 2023-04-17 00:00:00 Refill Anu Brian [facility] 1.2.840.114 350.1.13.10 4.2.7.2.686 [id number] [facility] 2023-04-07 00:00:00 2023-04-07 00:00:00 Patient Secure Msg Doctor Unassigned, [place] [facility] 1.114 350.1.13.10 4.2.7.2.686 [id number] [facility] 2023-04-06 09:45:00 2023-04-06 11:44:26 Outpatient R LG HALL [place] [id number] [facility] 2023-04-06 09:45:00 2023-04-06 11:44:26 Office Visit Lg Hall [facility] 1..114 350.1.13.10 4.2.7.2.686 [id number] [facility] 2023-03-28 00:00:00 2023-03-28 00:00:00 Telephone Anu Brian [facility] 1..840.114 350.1.13.10 4.2.7.2.686 [id number] [facility] 2023-03-24 13:00:00 2023-03-24 13:00:00 Outpatient R EMMA HUFFMAN [place] [id number] [facility] 2023-03-22 09:40:00 2023-03-22 15:07:52 Outpatient R ANU BRIAN [place] [id number] [facility] 2023-03-22 09:40:00 2023-03-22 15:07:52 Office Visit Anu Brian [facility] 1..840.114 350.1.13.10 4.2.7.2.686 [id number] [facility] 2023-03-20 00:00:00 2023-03-20 00:00:00 Telephone Anu Brian [facility] 1.2.840.114 350.1.13.10 4.2.7.2.686 [id number] [facility] 2023-03-20 00:00:00 2023-03-20 00:00:00 Telephone Anu Brian [facility] 1.2.840.114 350.1.13.10 4.2.7.2.686 [id number] [facility] 2023-03-13 10:00:00 2023-03-13 10:48:32 Outpatient [facility] [id number] [facility] 2023-03-13 10:00:00 2023-03-13 10:48:32 Office Visit [place] [facility] 1.2.840.114 350.1.13.10 4.2.7.2.686 [id number] [facility] 2023-03-13 00:00:00 2023-03-13 00:00:00 Letter (Out) [place] [facility] 1.2.840.114 350.1.13.10 4.2.7.2.686 [id number] [facility] 2023-02-02 15:15:00 2023-02-02 16:02:43 Outpatient R ANTONY DARDEN [place] [id number] [facility] 2023-02-02 15:15:00 2023-02-02 16:02:43 Ancillary Visit Kelly Bernstein Craig L [facility] 1.2.840.114 350.1.13.10 4.2.7.2.686 [id number] [facility] 2023-01-20 09:15:00 2023-01-20 09:15:00 Outpatient R LG HALL [place] [id number] [facility] 2023-01-19 00:00:00 2023-01-19 00:00:00 Patient Secure Msg Doctor Unassigned, [place] [facility] 1.2840.114 350.1.13.10 4.2.7.2.686 [id number] [facility] 2023-01-19 00:00:00 2023-01-19 00:00:00 Patient Secure Msg Doctor Unassigned, [place] [facility] 1.2840.114 350.1.13.10 4.2.7.2.686 [id number] [facility] 2023-01-14 00:00:00 2023-01-14 00:00:00 Refill Bull [facility] 1.2840.114 350.1.13.10 4.2.7.2.686 [id number] [facility] 2023-01-12 11:40:58 2023-01-12 23:59:00 Hospital Encounter Anu Brian [facility] 1.2840.114 350.1.13.10 4.2.7.2.686 [id number] [facility] 2023-01-12 11:40:47 2023-01-12 23:59:00 Outpatient R ANU BRIAN [place] [id number] [facility] 2023-01-12 11:40:47 2023-01-12 23:59:00 Hospital Encounter Sandrakaty [facility] 1.2840.114 350.1.13.10 4.2.7.2.686 [id number] [facility] 2023-01-11 12:05:32 2023-01-11 23:59:00 Hospital Encounter Jessy, Ogechukwu [facility] 1.2.840.114 350.1.13.10 4.2.7.2.686 [id number] [facility] 2023-01-11 12:05:19 2023-01-11 23:59:00 Outpatient R JUAN DIEGO WILSON OGE[place]WU [place] [id number] [facility] 2023-01-11 12:05:19 2023-01-11 23:59:00 Hospital Encounter Juan Diego Wilson [facility] 1.2.840.114 350.1.13.10 4.2.7.2.686 [id number] [facility] 2023-01-11 00:00:00 2023-01-11 00:00:00 Orders Only Doctor Unassigned, [place] [facility] 1.2840.114 350.1.13.10 4.2.7.2.686 [id number] [facility] 2023-01-09 00:00:00 2023-01-09 00:00:00 Refill Juan Diego Wilson [facility] 1.2840.114 350.1.13.10 4.2.7.2.686 [id number] [id number] [facility] 2022-12-23 16:00:00 2022-12-23 16:40:20 Outpatient R JUAN DIEGO WILSON [place]WU [place] [id number] [facility] 2022-12-23 16:00:00 2022-12-23 16:30:00 Office Visit Juan Diego Wilson [facility] 1.2840.114 350.1.13.10 4.2.7.2.686 [id number] 044 [id number] [facility] 2022-12-23 16:00:00 2022-12-23 16:00:00 Outpatient R JUAN DIEGO WILSON [place]U [place] [id number] [facility] 2022-12-23 00:00:00 2022-12-23 00:00:00 Telephone Anu Brian [facility] 1..840.114 350.1.13.10 4.2.7.2.686 [id number] 044 [id number] [facility] 2022-12-22 00:00:00 2022-12-22 00:00:00 Outpatient R ANU BRIAN [place] [id number] [facility] 2022-12-22 00:00:00 2022-12-22 00:00:00 Outpatient ANU DOOLEY [place] [id number] [facility] 2022-12-22 00:00:00 2022-12-22 00:00:00 Patient Secure Msg Doctor Unassigned, [place] [facility] 1.840.114 350.1.13.10 4.2.7.2.686 [id number] [id number] [facility] 2022-12-20 00:00:00 2022-12-20 00:00:00 Telephone Anu Brian [facility] 1.2.840.114 350.1.13.10 4.2.7.2.686 [id number] [facility] 2022-12-16 11:45:00 2022-12-16 11:45:00 Consumer Banker Visit 2, Adc Lab Anu Brian [facility] 1.2.840.114 350.1.13.10 4.2.7.2.686 [id number] [facility] 2022-12-16 08:20:00 2022-12-16 09:27:38 Outpatient R SANDRAGREGORIADEANNE ANU [place] [id number] [facility] 2022-12-16 08:20:00 2022-12-16 09:27:38 Office Visit SandragregoriaAnu alicea [facility] 1.2.840.114 350.1.13.10 4.2.7.2.686 [id number] 044 [id number] [facility] 2022-12-01 15:40:00 2022-12-01 15:40:00 Outpatient R ANU BRIAN [place] [id number] [facility] 2022-10-14 12:00:00 2022-10-14 12:00:00 Outpatient R JUAN DIEGO WILSON [place]GE[place]WU [place] [id number] [facility] 2022-10-12 15:00:00 2022-10-12 15:00:00 Outpatient R RADHA ASHBY [place] [id number] [facility] 2022-10-07 09:00:00 2022-10-07 09:00:00 Outpatient R LG HALL [place] [id number] [facility] 2022-10-04 13:00:00 2022-10-04 13:00:00 Outpatient R ANU BRIAN [place] [id number] [facility] 2022-09-24 00:00:00 2022-09-24 00:00:00 Refill Anu Brian [facility] 1..840.114 350.1.13.10 4.2.7.2.686 [id number] [id number] [facility] 2022-09-24 00:00:00 2022-09-24 00:00:00 Refill Beatrice Linares [facility] 1.2.840.114 350.1.13.10 4.2.7.2.686 [id number] [facility] 2022-09-16 10:00:00 2022-09-16 10:27:40 Outpatient R CORNELIO LUTHER HOWARD [place] [id number] [facility] 2022-09-16 10:00:00 2022-09-16 10:27:40 Office Visit Cornelio Luther [facility] 1.2.840.114 350.1.13.10 4.2.7.2.686 [id number] 092 [id number] [facility] 2022-09-16 00:00:00 2022-09-16 00:00:00 Orders Only Doctor Unassigned, [place] [facility] 1.2840.114 350.1.13.10 4.2.7.2.686 [id number] [id number] [facility] 2022-08-27 00:00:00 2022-08-27 00:00:00 Refill Alton Emma [facility] 1.2840.114 350.1.13.10 4.2.7.2.686 [id number] 092 [id number] [facility] 2022-08-23 00:00:00 2022-08-23 00:00:00 Refill Juan Dieog Wilson [facility] 1.2840.114 350.1.13.10 4.2.7.2.686 [id number] 044 [id number] [facility] 2022-07-22 00:00:00 2022-07-22 00:00:00 Refill Juan Diego Wilson [facility] 1.2.840.114 350.1.13.10 4.2.7.2.686 [id number] 044 [id number] [facility] 2022-06-30 00:00:00 2022-06-30 00:00:00 Case Management Marion Gong 1.2.840.114 350.1.13.10 4.2.7.2.686 [id number] 086 [id number] [facility] 2022-06-30 00:00:00 2022-06-30 00:00:00 Telephone Marion Gong 1.2.840.114 350.1.13.10 4.2.7.2.686 [id number] 086 [id number] [facility] 2022-06-28 13:00:00 2022-06-28 13:00:00 Outpatient R ANU BRIAN [place] [id number] [facility] 2022-06-21 00:00:00 2022-06-21 00:00:00 Telephone Anu Brian [facility] 1.2840.114 350.1.13.10 4.2.7.2.686 [id number] 044 [id number] [facility] 2022-06-14 00:00:00 2022-06-14 00:00:00 Telephone Anu Brian [facility] 1.2.840.114 350.1.13.10 4.2.7.2.686 [id number] 044 [id number] [facility] 2022-06-14 00:00:00 2022-06-14 00:00:00 Telephone Emma Huffman [facility] SAMEERA?CBJabari [facility] 1.2.840.114 350.1.13.10 4.2.7.2.686 [id number] 092 [id number] [facility] 2022-06-14 00:00:00 2022-06-14 00:00:00 Telephone Anu Brian [facility] 1.2.840.114 350.1.13.10 4.2.7.2.686 [id number] 044 [id number] [facility] 2022-06-13 00:00:00 2022-06-13 00:00:00 Orders Only Doctor Unassigned, [place] [facility] 1.2.840.114 350.1.13.10 4.2.7.2.686 [id number] [id number] [facility] 2022-06-03 00:00:00 2022-06-03 00:00:00 Refill Cornelio Luther [facility] 1..840.114 350.1.13.10 4.2.7.2.686 [id number] 092 [id number] [facility] 2022-05-05 00:00:00 2022-05-05 00:00:00 Refill Beatrice Linares [facility] 1.840.114 350.1.13.10 4.2.7.2.686 [id number] [facility] 2022-04-20 14:00:00 2022-04-20 14:00:00 Outpatient R SHANIA JIM [place] [id number] [facility] 2022-04-07 00:00:00 2022-04-07 00:00:00 [facility] 1..840.114 350.1.13.10 4.2.7.2.686 [id number] [facility] 2022-04-07 00:00:00 2022-04-07 00:00:00 Refill Juan Diego Wilson [facility] 1..840.114 350.1.13.10 4.2.7.2.686 [id number] 044 [id number] [facility] 2022-03-11 08:00:00 2022-03-11 08:00:00 Outpatient Giovani LINARESBEATRICE [place] [id number] [facility] 2022-03-04 00:00:00 2022-03-04 00:00:00 Refill Beatrice Linares [facility] 1.2.840.114 350.1.13.10 4.2.7.2.686 [id number] 231 [id number] [facility] 2022-02-17 00:00:00 2022-02-17 00:00:00 Refill Beatrice Linares [facility] 1.2.840.114 350.1.13.10 4.2.7.2.686 [id number] 231 [id number] [facility] 2022-01-11 00:00:00 2022-01-11 00:00:00 Tele[facility] 1.2.840.114 350.1.13.10 4.2.7.2.686 [id number] 231 [id number] [facility] 2021-12-31 11:20:00 2021-12-31 11:20:00 Outpatient BEATRICE TRACY [place] [id number] [facility] 2021-12-14 09:20:00 2021-12-14 12:11:28 Office Visit Cornelio Luther [facility] 1.2.840.114 350.1.13.10 4.2.7.2.686 [id number] 092 [id number] [facility] 2021-12-14 09:20:00 2021-12-14 12:11:28 Outpatient CORNELIO REILLY HOWARD [place] [id number] [facility] 2021-12-14 09:20:00 2021-12-14 09:20:00 Outpatient CORNELIO REILLY HOWARD [place] [id number] [facility] 2021-12-14 09:20:00 2021-12-14 09:20:00 Outpatient CORNELIO REILLY HOWARD [place] [id number] [facility] 2021-11-23 00:00:00 2021-11-23 00:00:00 Telephone Cornelio Luther [facility] 1.2.840.114 350.1.13.10 4.2.7.2.686 [id number] 092 [id number] [facility] 2021-11-23 00:00:00 2021-11-23 00:00:00 Patient Secure Mschelsi Beatrice Linares Jabari [facility] 1.2.840.114 350.1.13.10 4.2.7.2.686 [id number] 231 [id number] [facility] 2021-11-15 16:00:00 2021-11-15 16:51:39 Outpatient R JOSE BEATRICE [place] [id number] [facility] 2021-11-15 16:00:00 2021-11-15 16:51:39 Office Visit Scott Linaresjohn Barboza [facility] 1.2.840.114 350.1.13.10 4.2.7.2.686 [id number] [facility] 2021-11-15 16:00:00 2021-11-15 16:51:39 Outpatient R SCOTT LINARESTH [place] [id number] [facility] 2021-11-15 13:00:00 2021-11-15 13:45:58 Office Visit Cornelio Luther [facility] 1.2.840.114 350.1.13.10 4.2.7.2.686 [id number] 092 [id number] [facility] 2021-11-15 13:00:00 2021-11-15 13:45:58 Outpatient CORNELIO REILLY HOWARD [place] [id number] [facility] 2021-11-15 13:00:00 2021-11-15 13:00:00 Outpatient CORNELIO REILLY HOWARD [place] [id number] [facility] 2021-11-09 00:00:00 2021-11-09 00:00:00 Patient Secure Msg Beatrice Linares [facility] 1.2.840.114 350.1.13.10 4.2.7.2.686 [id number] [id number] [facility] 2021-11-09 00:00:00 2021-11-09 00:00:00 Patient Secure Msg Beatrice Linares [facility] 1.2.840.114 350.1.13.10 4.2.7.2.686 [id number] [facility] 2021-11-02 08:00:00 2021-11-02 08:00:00 Outpatient CORNELIO REILLY HOWARD [place] [id number] [facility] 2021-10-16 00:00:00 2021-10-16 00:00:00 Letter (Out) Neurology [facility] 1.2.840.114 350.1.13.10 4.2.7.2.686 [id number] 092 [id number] [facility] 2021-10-16 00:00:00 2021-10-16 00:00:00 Patient Secure Msg Doctor Unassigned, [place] [facility] 1.2.840.114 350.1.13.10 4.2.7.2.686 [id number] 059 [id number] [facility] 2021-09-28 00:00:00 2021-09-28 00:00:00 Refill Anu Brian [facility] 1.2.840.114 350.1.13.10 4.2.7.2.686 [id number] 231 [id number] [facility] 2021-09-28 00:00:00 2021-09-28 00:00:00 Refill Isma Radha [facility] 1.2.840.114 350.1.13.10 4.2.7.2.686 [id number] 059 [id number] [facility] 2021-09-26 00:00:00 2021-09-26 00:00:00 Refill Beatrice Linares [facility] 1.2.840.114 350.1.13.10 4.2.7.2.686 [id number] 044 [id number] [facility] 2021-09-21 10:00:00 2021-09-21 10:00:00 Outpatient CORNELIO REILLY HOWARD [place] [id number] [facility] 2021-09-21 00:00:00 2021-09-21 00:00:00 Refill Anu Brian [facility] 1.2.840.114 350.1.13.10 4.2.7.2.686 [id number] 044 [id number] [facility] 2021-09-06 09:11:06 2021-09-06 23:59:00 Hospital Encounter Beatrice Linares [facility] 1.2.840.114 350.1.13.10 4.2.7.2.686 [id number] [facility] 2021-09-06 09:10:43 2021-09-06 09:10:43 Hospital Encounter Beatrice Linares [facility] 1.2.840.114 350.1.13.10 4.2.7.2.686 [id number] [facility] 2021-09-06 00:00:00 2021-09-06 09:10:43 Outpatient R BEATRICE LINARES [place] [id number] [facility] 2021-09-06 00:00:00 2021-09-06 00:00:00 Patient Secure Msg Beatrice Linares [facility] 1.2.840.114 350.1.13.10 4.2.7.2.686 [id number] 231 [id number] [facility] 2021-08-31 00:00:00 2021-08-31 00:00:00 Case Management Beatrice Linares [facility] 1.2.840.114 350.1.13.10 4.2.7.2.686 [id number] 231 [id number] [facility] 2021-08-30 00:00:00 2021-08-30 00:00:00 Anu Finley [facility] 1.2.840.114 350.1.13.10 4.2.7.2.686 [id number] 231 [id number] [facility] 2021-08-26 09:08:32 2021-08-26 23:59:00 Outpatient R BEATRICE LINARES [place] [id number] [facility] 2021-08-26 09:08:32 2021-08-26 23:59:00 Hospital Encounter Beatrice Linares [facility] 1.2.840.114 350.1.13.10 4.2.7.2.686 [id number] [facility] 2021-08-26 08:45:00 2021-08-26 09:00:00 Consumer Banker Visit 2, Adc Lab Juan Diego Wilson [facility] 1.2.840.114 350.1.13.10 4.2.7.2.686 [id number] [facility] 2021-08-25 00:00:00 2021-08-25 00:00:00 Refill Beatrice Linares [facility] 1.2.840.114 350.1.13.10 4.2.7.2.686 [id number] 231 [id number] [facility] 2021-08-25 00:00:00 2021-08-25 00:00:00 Refill Anu Brian [facility] 1.2.840.114 350.1.13.10 4.2.7.2.686 [id number] [id number] [facility] 2021-08-25 00:00:00 2021-08-25 00:00:00 Refill Beatrice Linares [facility] 1.2.840.114 350.1.13.10 4.2.7.2.686 [id number] 231 [id number] [facility] 2021-08-25 00:00:00 2021-08-25 00:00:00 Refill Anu Brian [facility] 1.2.840.114 350.1.13.10 4.2.7.2.686 [id number] 231 [id number] [facility] 2021-08-25 00:00:00 2021-08-25 00:00:00 Telephone Beatrice Linares [facility] 1.2.840.114 350.1.13.10 4.2.7.2.686 [id number] 231 [id number] [facility] 2021-08-23 14:20:00 2021-08-23 15:42:37 Outpatient R BEATRICE LINARES [place] [id number] [facility] 2021-08-23 14:20:00 2021-08-23 15:42:37 Office Visit Beatrice Linares [facility] 1.840.114 350.1.13.10 4.2.7.2.686 [id number] 231 [id number] [facility] 2021-08-23 14:20:00 2021-08-23 15:42:37 [facility] [id number] [facility] 2021-08-23 14:20:00 2021-08-23 14:20:00 Outpatient R [facility] [id number] [facility] 2021-08-16 13:45:00 2021-08-16 14:50:46 Outpatient R LG HALL [place] [id number] [facility] 2021-08-16 13:45:00 2021-08-16 14:50:46 Office Visit Lg Hall [facility] [employer] [facility] 06.27.840.114 350.1.13.10 4.2.7.2.686 [id number] [facility] 2021-08-16 00:00:00 2021-08-16 00:00:00 Orders Only Doctor Unassigned, [place] [facility] .840.114 350.1.13.10 4.2.7.2.686 [id number] [id number] [facility] 2021-07-29 08:33:00 2021-07-29 12:36:00 Outpatient R CHASITY TRAORE [facility] GIE [id number] [facility] 2021-07-29 08:33:00 2021-07-29 12:36:00 Hospital Encounter Chasity Traore [facility] 1.840.114 350.1.13.10 4.2.7.2.686 [id number] 049 [id number] [facility] 2021-07-29 10:15:00 2021-07-29 11:15:00 [facility] 1.2840.114 350.1.13.10 4.2.7.2.686 [id number] [facility] 2021-07-28 00:00:00 2021-07-28 00:00:00 Patient Secure Msg Doctor Unassigned, [place] [facility] [employer] [facility] 1.840.114 350.1.13.10 4.2.7.2.686 [id number] 020 [id number] [facility] 2021-07-26 13:45:00 2021-07-26 14:00:00 Laboratory Only Only, Adc Test Nora Butcher [facility] 1.0.114 350.1.13.10 4.2.7.2.686 [id number] [facility] 2021-07-26 13:45:00 2021-07-26 13:45:00 Outpatient R NORA BUTCHER [place] [id number] [facility] 2021-07-26 00:00:00 2021-07-26 00:00:00 Orders Only Doctor Unassigned, [place] [facility] 1.0.114 350.1.13.10 4.2.7.2.686 [id number] [id number] [facility] 2021-07-07 00:00:00 2021-07-07 00:00:00 Beatrice Jarvis [facility] 1.0.114 350.1.13.10 4.2.7.2.686 [id number] 231 [id number] [facility] 2021 10:40:00 2021 10:40:00 Outpatient R KENDRA LINARESZABETH [place] [id number] [facility] 2021-06-09 00:00:00 2021-06-09 00:00:00 Telephone Beatrice Linares [facility] 1.2.840.114 350.1.13.10 4.2.7.2.686 [id number] 044 [id number] [facility] 2021-06-08 00:00:00 2021-06-08 00:00:00 Telephone Beatrice Linares [facility] 1.2.840.114 350.1.13.10 4.2.7.2.686 [id number] [facility] 2021-06-04 09:30:00 2021-06-04 09:30:00 Outpatient R LG HALL [place] [id number] [facility] 2021-06-04 09:30:00 2021-06-04 09:30:00 Outpatient Giovani HALL LG [place] [id number] [facility] 2021-06-01 00:00:00 2021-06-01 00:00:00 Refill Radha Ashby [facility] 1.2.840.114 350.1.13.10 4.2.7.2.686 [id number] [facility] 2021-05-31 00:00:00 2021-05-31 00:00:00 RefAnu Camarillo [facility] 1.2.840.114 350.1.13.10 4.2.7.2.686 [id number] 044 [id number] [facility] 2021-05-26 00:00:00 2021-05-26 00:00:00 Patient Secure Msg Doctor Unassigned, [place] [facility]. 1..840.114 350.1.13.10 4.2.7.2.686 [id number] [facility] 2021-05-25 00:00:00 2021-05-25 00:00:00 Telephone Beatrice Linares [facility] 1.84.114 350.1.13.10 4.2.7.2.686 [id number] 044 [id number] [facility] 2021-05-19 17:07:14 2021-05-19 23:59:00 Outpatient R BEATRICE LINARES [place] [id number] [facility] 2021-05-19 17:00:00 2021-05-19 23:59:00 Hospital Encounter Beatrice Linares [facility] 1.840.114 350.1.13.10 4.2.7.2.686 [id number] [facility] 2021-05-19 00:00:00 2021-05-19 00:00:00 Orders Only Doctor Unassigned, [place] [facility] 1.284.114 350.1.13.10 4.2.7.2.686 [id number] [facility] 2021-05-17 00:00:00 2021-05-17 00:00:00 Telephone Beatrice Linares [facility] 1.2.840.114 350.1.13.10 4.2.7.2.686 [id number] 044 [id number] [facility] 2021-05-11 15:40:00 2021-05-12 08:54:17 Outpatient R BEATRICE LINARES [place] [id number] [facility] 2021-05-11 08:32:09 2021-05-12 08:54:17 Telemedici ne Visit Beatrice Linares Jabari [facility] 1.2.840.114 350.1.13.10 4.2.7.2.686 [id number] 231 [id number] [facility] 2021-04-26 00:00:00 2021-04-26 00:00:00 Telephone Linares Beatrice Jabari [facility] 1.2.840.114 350.1.13.10 4.2.7.2.686 [id number] 231 [id number] [facility] 2021-04-13 00:00:00 2021-04-13 00:00:00 Telephone LinaresBeatrice torrez Jabari [facility] 1.2.840.114 350.1.13.10 4.2.7.2.686 [id number] 044 [id number] [facility] 2021-03-26 14:30:00 2021-03-26 14:30:00 Outpatient CHARIS CARTER [place] [id number] [facility] 2021-03-19 00:00:00 2021-03-19 00:00:00 Telephone LinaresBeatrice torrez Jabari [facility] 1.2.840.114 350.1.13.10 4.2.7.2.686 [id number] 044 [id number] [facility] 2021-03-19 00:00:00 2021-03-19 00:00:00 Telephone LinaresBeatrice torrez Jabari [facility] 1.2.840.114 350.1.13.10 4.2.7.2.686 [id number] 044 [id number] [facility] 2021-03-04 00:00:00 2021-03-04 00:00:00 Anu Finley [facility] 1.2.840.114 350.1.13.10 4.2.7.2.686 [id number] 044 [id number] [facility] 2021-03-02 15:31:58 2021-03-02 15:51:58 Telemedici ne Visit LinaresBeatrice torrez Jabari [facility] 1.2.840.114 350.1.13.10 4.2.7.2.686 [id number] 231 [id number] [facility] 2021-03-02 15:40:00 2021-03-02 15:40:00 Outpatient R BEATRICE LINARES [place] [id number] [facility] 2021-03-01 00:00:00 2021-03-01 00:00:00 Patient Secure Msg Beatrice Linares [facility] 1.2.840.114 350.1.13.10 4.2.7.2.686 [id number] 044 [id number] [facility] 2021-02-16 00:00:00 2021-02-16 00:00:00 Telephone Beatrice Linares [facility] 1.2.840.114 350.1.13.10 4.2.7.2.686 [id number] [facility] 2021-02-16 00:00:00 2021-02-16 00:00:00 Telephone Linares Beatrice A [facility] 1.2.840.114 350.1.13.10 4.2.7.2.686 [id number] [facility] 2021-02-15 14:40:00 2021-02-15 14:40:00 Outpatient ANU DOOLEY [facility] [id number] [facility] 2021-02-15 14:10:00 2021-02-15 14:10:00 Outpatient MITCHELLNEIL [place] [id number] [facility] 2021-02-12 00:00:00 2021-02-12 00:00:00 Telephone Beatrice Linares [facility] 1.2.840.114 350.1.13.10 4.2.7.2.686 [id number] [facility] 2021-02-12 00:00:00 2021-02-12 00:00:00 Telephone Beatrice Linares [facility] 1.2.840.114 350.1.13.10 4.2.7.2.686 [id number] [facility] 2021-02-11 00:00:00 2021-02-11 00:00:00 Telephone Fred [facility] 1.2.840.114 350.1.13.10 4.2.7.2.686 [id number] [facility] 2021-02-08 00:00:00 2021-02-08 00:00:00 Telephone Fred [facility] 1.2.840.114 350.1.13.10 4.2.7.2.686 [id number] [facility] 2021-02-05 00:00:00 2021-02-05 00:00:00 Shaka Stacy [facility] 1.2.840.114 350.1.13.10 4.2.7.2.686 [id number] [facility] 2021-02-03 07:59:00 2021-02-03 12:05:00 Hospital Encounter IbarraTed castaneda [facility] ([facility]) 1.2.840.114 350.1.13.10 4.2.7.2.686 [id number] [facility] 2021-02-03 10:15:00 2021-02-03 11:15:00 Surgery Ted Ibarra [facility] 1.0.114 350.1.13.10 4.2.7.2.686 [id number] [facility] 2021-02-03 00:00:00 2021-02-03 00:00:00 Orders Only Doctor Unassigned, [place] [facility] 1..114 350.1.13.10 4.2.7.2.686 [id number] [facility] 2021-02-01 12:58:48 2021-02-01 13:13:48 Laboratory Only Only, Adc Test Nora Butcher [facility] 1..114 350.1.13.10 4.2.7.2.686 [id number] [facility] 2021-02-01 13:00:00 2021-02-01 13:00:00 Outpatient R [place] [id number] [facility] 2021-01-25 00:00:00 2021-01-25 00:00:00 Patient Secure Msg Beatrice Linares [facility] 1..114 350.1.13.10 4.2.7.2.686 [id number] [facility] 2021-01-08 00:00:00 2021-01-08 00:00:00 Telephone Ted Ibarra [facility] 1..114 350.1.13.10 4.2.7.2.686 [id number] [facility] 2021-01-04 00:00:00 2021-01-04 00:00:00 Telephone Beatrice Linares [facility] 1.2.840.114 350.1.13.10 4.2.7.2.686 [id number] [facility] 2021-01-01 00:00:00 2021-01-01 00:00:00 Refill Shaka Juarez [facility] 1.2.840.114 350.1.13.10 4.2.7.2.686 [id number] [facility] 2020-12-29 00:00:00 2020-12-29 00:00:00 Refill Anu Brian [facility] 1.2.840.114 350.1.13.10 4.2.7.2.686 [id number] [facility] 2020-12-23 13:57:18 2020-12-23 14:12:18 Consumer Banker Visit Pob, Adc [facility] 1.2.840.114 350.1.13.10 4.2.7.2.686 [id number] [facility] 2020-12-23 13:45:00 2020-12-23 13:45:00 Outpatient R CHARIS RAE [place] [id number] [facility] 2020-12-21 11:00:00 2020-12-21 14:31:40 Outpatient R CHARIS RAE [place] [id number] [facility] 2020-12-21 10:37:00 2020-12-21 14:31:40 Office Visit Charis Rae [facility] 1.2.840.114 350.1.13.10 4.2.7.2.686 [id number] [facility] 2020-12-21 11:24:42 2020-12-21 13:16:17 Consumer Banker Visit Vls-[facility] 1.2.840.114 350.1.13.10 4.2.7.2.686 [id number] [facility] 2020-12-21 11:00:00 2020-12-21 11:00:00 Outpatient R CHARIS RAE [place] [id number] [facility] 2020-12-21 00:00:00 2020-12-21 00:00:00 Letter (Out) [facility] 1.2.840.114 350.1.13.10 4.2.7.2.686 [id number] [facility] 2020-12-02 00:00:00 2020-12-02 00:00:00 Refill Radha Ashby [facility] 1..840.114 350.1.13.10 4.2.7.2.686 [id number] [facility] 2020-11-30 00:00:00 2020-11-30 00:00:00 Refill Beatrice Linares [facility] Building 1..840.114 350.1.13.10 4.2.7.2.686 [id number] [facility] 2020-11-17 00:00:00 2020-11-17 00:00:00 Orders Only Doctor Unassigned, [place] [facility] 1.284.114 350.1.13.10 4.2.7.2.686 [id number] [facility] 2020-11-16 00:00:00 2020-11-16 00:00:00 Telephone Beatrice Linares [facility] Building 1.2840.114 350.1.13.10 4.2.7.2.686 [id number] [facility] 2020-11-14 00:00:00 2020-11-14 00:00:00 Patient Secure Msg Doctor Unassigned, [place] [facility] 1.2.840.114 350.1.13.10 4.2.7.2.686 [id number] [facility] 2020-11-12 07:57:18 2020-11-12 16:15:09 Telemedici ne Visit Beatrice [facility]inares [facility] 1.2840.114 350.1.13.10 4.2.7.2.686 [id number] [facility] 2020-11-12 15:00:00 2020-11-12 15:00:00 Outpatient R BEATRICE LINARES [place] [id number] [facility] 2020-11-09 10:41:49 2020-11-09 23:59:00 Hospital Encounter Beatrice Linares [facility] 1.2840.114 350.1.13.10 4.2.7.2.686 [id number] [facility] 2020-11-09 00:00:00 2020-11-09 00:00:00 Outpatient BEATRICE TRACY [place] [id number] [facility] 2020-11-09 00:00:00 2020-11-09 00:00:00 Orders Only Doctor Unassigned, [place] [facility] 1.2840.114 350.1.13.10 4.2.7.2.686 [id number] [facility] 2020-11-05 16:00:00 2020-11-05 16:00:00 [id number] 2020-11-02 07:48:33 2020-11-03 07:57:29 Telemedici ne Visit Beatrice Linares [facility] 1.2.840.114 350.1.13.10 4.2.7.2.686 [id number] [facility] 2020-11-02 16:40:00 2020-11-02 16:40:00 Outpatient R BEATRICE LINARES [place] [id number] [facility] 2020-11-02 00:00:00 2020-11-02 00:00:00 Refill Beatrice Linares [facility] 1.2.840.114 350.1.13.10 4.2.7.2.686 [id number] [facility] 2020-09-08 00:00:00 2020-09-08 00:00:00 Patient Outreach Neil Huggins [facility] 1.2.840.114 350.1.13.10 4.2.7.2.686 [id number] [facility] 2020-08-18 13:30:06 2020-08-18 15:26:41 Office Visit Anu Brian [facility] 1.2.840.114 350.1.13.10 4.2.7.2.686 [id number] [facility] 2020-08-18 13:40:00 2020-08-18 13:40:00 Outpatient R ANU BRIAN [place] [id number] [facility] 2020-07-20 11:04:32 2020-07-20 12:49:18 Office Visit Beatrice Linares [facility] 1.2.840.114 350.1.13.10 4.2.7.2.686 [id number] [facility] 2020-07-20 11:20:00 2020-07-20 11:20:00 Outpatient BEATRICE TRACY [place] [id number] [facility] 2020-07-17 07:55:26 2020-07-17 16:43:38 Telemedici ne Visit Anu Brian [facility] 1..840.114 350.1.13.10 4.2.7.2.686 [id number] [facility] 2020-07-17 08:20:00 2020-07-17 08:20:00 Outpatient R ANU BRIAN [place] [id number] [facility] 2020-07-16 16:20:00 2020-07-16 16:20:00 Outpatient R BEATRICE LINARES [place] [id number] [facility] 2020-07-09 11:45:00 2020-07-09 11:45:00 Outpatient R BEATRICE LINARES [place] [id number] [facility] 2020-07-09 10:55:02 2020-07-09 11:10:02 Consumer Banker Visit Pob, Adc Lab Main Beatrice Linares [facility] 1..840.114 350.1.13.10 4.2.7.2.686 [id number] [facility] 2020-07-09 00:00:00 2020-07-09 00:00:00 Orders Only Doctor Unassigned, [place] [facility] 1..840.114 350.1.13.10 4.2.7.2.686 [id number] [facility] 2020-07-08 00:00:00 2020-07-08 00:00:00 Refill Anu Brian [facility] nal Building 1.2.840.114 350.1.13.10 4.2.7.2.686 [id number] [facility] 2020-07-08 00:00:00 2020-07-08 00:00:00 Refill Beatrice Linares [facility] 1.2.840.114 350.1.13.10 4.2.7.2.686 [id number] [facility] 2020-07-07 08:45:40 2020-07-07 17:20:06 Telemedici ne Visit Beatrice Linares [facility] 1.2.840.114 350.1.13.10 4.2.7.2.686 [id number] [facility] 2020-07-07 16:00:00 2020-07-07 16:00:00 Outpatient R LINARESKENDRABEATRICE [place] [id number] [facility] 2020-07-03 00:00:00 2020-07-03 00:00:00 Telephone Beatrice Linares [facility] 1.2.840.114 350.1.13.10 4.2.7.2.686 [id number] [facility] 2020-06-08 10:55:00 2020-06-08 12:33:46 Office Visit Beatrice Linares [facility] 1.2.840.114 350.1.13.10 4.2.7.2.686 [id number] [facility] 2020-06-08 10:40:00 2020-06-08 10:40:00 Outpatient R BEATRICE LINARES [place] [id number] [facility] 2020-06-08 00:00:00 2020-06-08 00:00:00 Orders Only Doctor Unassigned, [place] [facility] 1.2840.114 350.1.13.10 4.2.7.2.686 [id number] [facility] 2020-04-29 00:00:00 2020-04-29 00:00:00 Refill Radha Ashby [facility] 1.2840.114 350.1.13.10 4.2.7.2.686 [id number] [facility] 2020-04-21 00:00:00 2020-04-21 00:00:00 Refill Anu Brian [facility] 1.284.114 350.1.13.10 4.2.7.2.686 [id number] [facility] 2020-03-25 00:00:00 2020-03-25 00:00:00 Telephone Beatrice Linares [facility] 1.284.114 350.1.13.10 4.2.7.2.686 [id number] [facility] 2020-03-05 00:00:00 2020-03-05 00:00:00 Patient Secure Msg Doctor Unassigned, [place] [facility] 1.20.114 350.1.13.10 4.2.7.2.686 [id number] [facility] 2020-02-19 15:00:00 2020-02-19 15:00:00 Outpatient R CARLITOS MACIEL [place] [id number] [facility] 2020-02-12 13:15:00 2020-02-12 13:15:00 Outpatient R CARLITOS MACIEL [place] [id number] [facility] 2020-01-29 00:00:00 2020-01-29 00:00:00 [facility] 1.2.840.114 350.1.13.10 4.2.7.2.686 [id number] [facility] 2019-12-30 09:40:00 2019-12-30 09:40:00 [facility] [id number] [facility] 2019-12-23 11:34:33 2019-12-23 12:40:27 Urgent Care Provider, [facility] [place], [facility] Office Building One 1.2.840.114 350.1.13.10 4.2.7.2.686 [id number] [facility] 2019-12-23 11:40:00 2019-12-23 11:40:00 Outpatient R [place] [id number] [facility] 2019-12-19 15:40:00 2019-12-19 15:40:00 Outpatient R SCOTT LINARESTH [place] [id number] [facility] 2019-12-19 11:07:01 2019-12-19 11:27:01 Telemedici ne Visit Beatrice Linares Jabari [facility] 1.2.840.114 350.1.13.10 4.2.7.2.686 [id number] [facility] 2019-11-26 14:00:00 2019-11-26 14:00:00 Outpatient R RADHA ASHBY [place] [id number] [facility] 2019-11-14 00:00:00 2019-11-14 00:00:00 Telephone Scott Linaresjohn Barboza [facility] 1.2.840.114 350.1.13.10 4.2.7.2.686 [id number] [facility] 2019-09-16 09:14:47 2019-09-16 16:54:39 Telemedici ne Visit Beatrice Linares [facility] 1.2.840.114 350.1.13.10 4.2.7.2.686 [id number] [facility] 2019-09-16 13:40:00 2019-09-16 13:40:00 Outpatient R BEATRICE LINARES [place] [id number] [facility] 2019-09-06 00:00:00 2019-09-06 00:00:00 Patient Secure Msg Beatrice Linares [facility] 1.2.840.114 350.1.13.10 4.2.7.2.686 [id number] [facility] 2019-09-03 00:00:00 2019-09-03 00:00:00 Telephone Anu Brian [facility] 1.2.840.114 350.1.13.10 4.2.7.2.686 [id number] [facility] 2019-08-28 09:47:08 2019-08-28 11:45:34 Office Visit Sandragregoriadeanne Anu [facility] 1.2.840.114 350.1.13.10 4.2.7.2.686 [id number] [facility] 2019-08-28 09:40:00 2019-08-28 09:40:00 Outpatient R SANDRAKATY ANU [place] [id number] [facility] 2019-08-28 00:00:00 2019-08-28 00:00:00 Telephone RupaAnu alicea [facility] 1.2.840.114 350.1.13.10 4.2.7.2.686 [id number] [facility] 2019-08-26 00:00:00 2019-08-26 00:00:00 Patient Secure Msg Beatrice Linares Jabari [facility] 1.2.840.114 350.1.13.10 4.2.7.2.686 [id number] [facility] 2019-08-23 12:48:11 2019-08-23 14:25:10 Office Visit Beatrice Linares [facility] 1.2.840.114 350.1.13.10 4.2.7.2.686 [id number] [facility] 2019-08-23 12:40:00 2019-08-23 12:40:00 Outpatient R BEATRICE LINARES [place] [id number] [facility] 2019-08-07 00:00:00 2019-08-07 00:00:00 Telephone Beatrice Linares Jabari [facility] 1.2.840.114 350.1.13.10 4.2.7.2.686 [id number] [facility] 2019-08-05 18:53:25 2019-08-05 19:08:25 Urgent Care Tegan Tatum Unknown, Attending [facility] marilyn Karen 1.2.840.114 350.1.13.10 4.2.7.2.686 [id number] [facility] 2019-07-01 09:40:43 2019-07-01 23:59:00 Outpatient R BEATRICE LINARES [place] [id number] [facility] 2019-03-08 00:00:00 2019-03-08 00:00:00 Orders Only Doctor Unassigned, [place] [facility] 1.2.840.114 350.1.13.10 4.2.7.2.686 [id number] [facility] 2019-02-26 00:00:00 2019-02-26 00:00:00 Telephone Beatrice Linares [facility] 1.2.840.114 350.1.13.10 4.2.7.2.686 [id number] [facility] 2019-02-20 00:00:00 2019-02-20 00:00:00 Telephone Beatrice Linares [facility] Office Building One 1.2.840.114 350.1.13.10 4.2.7.2.686 [id number] [facility] 2019-02-12 00:00:00 2019-02-12 00:00:00 Telephone Beatrice Linares [facility] 1.2.840.114 350.1.13.10 4.2.7.2.686 [id number] [facility] 2016-11-28 03:02:00 2016-11-29 17:51:00 Observatio n nullFlavo r [facility] [id number] 55 [facility] Results Test Description Test Time Test Comments Results Result Co mments Source [id number] 14:24:00* Test Item Value Reference Range Interpretation Comme nts AGAP (test code = AGAP) 8.7 10.0-20.0 eGFR (test code = eGFR) 88 Calcium Lvl (test code = Calcium Lvl) 8.1 8.5-10.5 Potassium Lvl (test code = P otassium Lvl) 3.7 3.5-5.1 Chloride Lvl (test code = Chloride Lvl) 106 95-109 CO2 (test code = CO2) 26 24-32 BUN (test code = BUN) 12 7-22 Creatinine Lvl (test code = Creatinine Lvl) 0.79 0.50-1.40 Sodium Lvl (test code = Sodium Lvl) 137 135-145 Glucose Lvl (test code = Glucose Lvl) 120 70-99 [facility]ckphvcWQSZKPZTGP6468-74-19 14:24:00* Test Item Value Reference Range Interpretation Comme nts MCV (test code = MCV) 94.9 80.0-98.0 Hgb (test code = Hgb) 12.5 12.0-16.0 MCH (test code = MCH) 32.2 pg 27.0-31.0 MCHC (test code = MCHC) 34.0 32.0-36.0 RBC (test code = RBC) 3.89 4.20-5.40 Hct (test code = Hct) 36.9 36.0-48.0 WBC (test code = WBC) 21.0 3.7-10.4 RDW (test code = RDW) 13.7 11.5-14.5 Platelet (test code = Platelet) 407 133-450 MPV (test code = MPV) 7.8 7.4-10.4 Lymphocytes # (test code = Lymphocytes #) 2.2 1.0-5.5 Monocytes # (test code = Monocytes #) 1.6 <=0.8 Basophils # (test code = Basophils #) 0.1 <=0.2 Monocytes (test code = Monocytes) 7.7 2.0-12.0 Lymphocytes (test code = Lymphocytes) 10.5 20.0-40.0 Basophils (test code = Basophils) 0.2 <=1.0 Segs-Bands # (test code = Se gs-Bands #) 17.1 1.5-8.1 Segs (test code = Segs) 81.6 45.0-75.0 [facility] AND [id number] 04:17:10* Test Item Value Reference Range Interpretation Comme nts UA RBC (test code = UA RBC) 11-20 /HPF <=2 UA Bacteria (test code = UA Bacteria) Moderate /HPF UA Sq Epi (test code = UA Sq Epi) Rare /LPF UA WBC (test code = UA WBC) 21-50 /HPF UA Nitrite (test code = UA Nitrite) Positive *ABN*(11/27/16 11:17 PM) UA Leuk Est (test code = UA Leuk Est) Trace *ABN*(11/27/16 11:17 PM) UA Glucose (test code = UA Glucose) Negative (11/27/16 11:17 PM) UA Spec Grav (test code = UA Spec Grav) 1.010 1 UA pH (test code = UA pH) 6.0 1 5.0-8.0 UA Color (test code = UA Color) Yellow *NA*(11/27/16 11:17 PM) UA Turbidity (test code = UA Turbidity) Slight Cloudy (11/27/16 11:17 PM) UA Protein (test code = UA Protein) Trace *ABN*(11/27/16 11:17 PM) UA Blood (test code = UA Blood) Large *ABN*(11/27/16 11:17 PM) UA Urobilinogen (test code = UA Urobilinogen) 0.2 0.1-1.0 UA Ketones (test code = UA Ketones) Negative *NA*(11/27/16 11:17 PM) UA Bili (test code = UA Bili) Negative *NA*(11/27/16 11:17 PM) [facility] [id number] 03:55:00* Test Item Value Reference Range Interpretation Comme nts Antibody Scrn (test code = Antibody Scrn) Negative (11/27/16 10:55 PM) ABO/Rh (test code = ABO/Rh) A NEG [facility] [id number] 03:42:33* Test Item Value Reference Range Interpretation Comme nts Lactic Acid Lvl (test code = Lactic Acid Lvl) 1.3 0.5-2.2 [facility] CenterWpdpfgyVYHDBRGNBYLT9304-69-50 03:42:33* Test Item Value Reference Range Interpretation Comme nts AGAP (test code = AGAP) 10.6 10.0-20.0 Potassium Lvl (test code = P otassium Lvl) 3.6 3.5-5.1 Chloride Lvl (test code = Chloride Lvl) 107 95-109 CO2 (test code = CO2) 23 24-32 Sodium Lvl (test code = Sodium Lvl) 137 135-145 Calcium Lvl (test code = Calcium Lvl) 7.7 8.5-10.5 Creatinine Lvl (test code = Creatinine Lvl) 0.81 0.50-1.40 Glucose Lvl (test code = Glucose Lvl) 136 70-99 BUN (test code = BUN) 14 7-22 eGFR (test code = eGFR) 86 [facility][id number] 03:42:33* Test Item Value Reference Range Interpretation Comme nts S Preg (test code = S Preg) Negative *NA*(11/27/16 10:42 PM) [id number] 03:42:33* Test Item Value Reference Range Interpretation Comme nts Eosinophils (test code = Eosinophils) 0.1 <=4.0 Monocytes (test code = Monocytes) 7.1 2.0-12.0 Lymphocytes (test code = Lymphocytes) 8.5 20.0-40.0 Basophils # (test code = Bas ophils #) 0.1 <=0.2 Monocytes # (test code = Mon ocytes #) 1.6 <=0.8 Segs (test code = Segs) 83.8 45.0-75.0 Lymphocytes # (test code = Lymphocytes #) 1.9 1.0-5.5 Segs-Bands # (test code = Segs-Bands #) 18.4 1.5-8.1 Basophils (test code = Basophils) 0.5 <=1.0 Angle Rapid (test code = Ang le Rapid) 80 degrees 64-80 Estimated % Lysis Rapid (lance t code = Estimated % Lysis Rapid) 0.2 <=7.5 Max Amplitude Rapid (test co de = Max Amplitude Rapid) 71 mm 52-71 K-time Rapid (test code = K- time Rapid) 0.8 min 0.6-2.3 G-value Rapid (test code = G -value Rapid) 12.2 5.0-11.6 R-time Rapid (test code = R- time Rapid) 0.5 min 0.4-0.7 ACT (TEG) Rapid (test code = ACT (TEG) Rapid) 97 s 86-118 Split Point Rapid (test code = Split Point Rapid) 0.4 min MCHC (test code = MCHC) 33.2 32.0-36.0 MCH (test code = MCH) 31.6 pg 27.0-31.0 MCV (test code = MCV) 95.1 80.0-98.0 Hct (test code = Hct) 37.5 36.0-48.0 Hgb (test code = Hgb) 12.5 12.0-16.0 MPV (test code = MPV) 7.7 7.4-10.4 Platelet (test code = Platelet) 408 133-450 RDW (test code = RDW) 13.7 11.5-14.5 WBC (test code = WBC) 21.9 3.7-10.4 RBC (test code = RBC) 3.94 4.20-5.40 [id number] 03:42:33* Test Item Value Reference Range Interpretation Comme nts Etoh (%) (test code = Etoh (%)) no gt Ethanol Lvl (test code = Ethanol Lvl) no gt [facility] [id number] 03:29:00* Test Item Value Reference Range Interpretation Comme nts U Cannab Scr (test code = U Cannab Scr) Negative *NA*(11/27/16 10:29 PM) UDS Note (test code = UDS Note) See Note (11/27/16 10:29 PM) U Winifred Scr (test code = U Winifred Scr) Negative *NA*(11/27/16 10:29 PM) U Opiate Scr (test code = U Opiate Scr) Positive *ABN*(11/27/16 10:29 PM) U Cocaine Scr (test code = U Cocaine Scr) Negative *NA*(11/27/16 10:29 PM) U Benzodia Scr (test code = U Benzodia Scr) Negative *NA*(11/27/16 10:29 PM) U Phencyc Scr (test code = U Phencyc Scr) Negative *NA*(11/27/16 10:29 PM) U Amph Scr (test code = U Amph Scr) Negative *NA*(11/27/16 10:29 PM) [facility] History and Physical Notes Date/Time Note Provider Source 2023-06-29 21:22:53 Future/standing labs ordered. Please let patient know. Thank you [facility] - Health Notes Date/Time Note Provider Source 2024-05-14 14:07:49 Attempted to contact patient x3. Patient needs WWE for further refills. Sher Saucedo RN 05/14/2024 2:08 PM GER RISK Sher Saucedo RN [facility] 2024-05-10 09:48:37 Attempted to reach patient. "Call cannot be completed at this time" Sher Saucedo RN 05/10/2024 9:48 AM GER RISK [facility] 2024-05-09 09:10:37 Attempted to reach pt, no answer Jena Villafuerte RN 05/09/2024 9:11 AM GER RISK Jena Villafuerte RN [facility] 2024-02-12 13:57:43 Images from the original note were not included. Routed to provider for review. Unable to refill per ambulatory refill guidelines. Will be due for a appt in Feb. Notes: shanae from pharmacy: VITAMIN D2 1.25MG(50,000 UNIT) Will file in chart as: ERGOCALCIFEROL, VITAMIN D2, 1,250 mcg (50,000 unit) capsule Sig: TAKE 1 CAPSULE BY MOUTH EVERY WEEK Disp: 4 capsule Refills: 4 Start: 02/11/2024 Class: eRX For: Vitamin D deficiency Last ordered: 1 year ago (12/16/2022) by Anu Brian MD Last refill: 11/30/2023 Rx #: [id number] Off-Protocol Emsysk0502/11/2024 09:17 PM Protocol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
[2024-10-13] MEDS ORDERED: AMOX/K CLAV 875 MG TAB ONE (13:36)
[2024-10-13] MEDS ORDERED: HYDROCODONE/APAP 10/325 TAB ONE (13:37)
[2024-10-13] MEDS ORDERED: KETOROLAC 30 MG/ML INJ ONE (13:37)
[2024-10-13] MEDS ORDERED: ONDANSETRON 4 MG (ODT) TAB ONE (13:37)
[2024-10-13 14:30] LABS: Influenza A Ag Negative
[2024-10-13 14:31] LABS: Influenza B Ag Negative; SARS-CoV-2 Antigen Rapid Res Negative (Negative)
--- NOTE | 2024-10-13 14:48 | RAD REPORT ---
Procedure: Chest Pa And Lat (2 Views) HISTORY: Cough COMPARISON: 2017 FINDINGS: The lungs appear clear of acute infiltrate. No significant pleural effusion noted. The heart is normal size. IMPRESSION: No acute abnormality is displayed.
--- NOTE | 2024-10-13 14:54 | ER ---
Nurse's Notes [facility] Name: Aubree Zimmer Age: 59 yrs Sex: Female : 1965 Arrival Date: 10/13/2024 Time: 12:07 Bed 20 Private MD: Diagnosis: Dental caries, unspecified-TENDER TORUS PALITINI;Cough;Acute upper respiratory infection, unspecified Presentation: 10/13 12:12 Chief complaint: EMS states: VSS, fingerstick 117. Chief complaint: Patient states: ll1 Cough, congestion, mouth sores for 2-3 days. Dizzy and weak for 1 day. Coronavirus screen: Client denies travel out of the [place] in the last 14 days. congestion, cough unrelated to allergies, fatigue, Client presents with at least one sign or symptom that may indicate coronavirus-19. Standard/surgical mask placed on the client. Ebola Screen: Patient denies travel to an Ebola-affected area in the 21 days before illness onset. Initial Sepsis Screen: Does the patient meet any 2 criteria? No. Patient's initial sepsis screen is negative. Does the patient have a suspected source of infection? No. Patient's initial sepsis screen is negative. Risk Assessment: Do you want to hurt yourself or someone else? Patient reports no desire to harm self or others. Onset of symptoms was October 11, 2024. 12:12 Method Of Arrival: EMS: [facility] ll1 12:12 Acuity: HELIO 3 ll1 Triage Assessment: 12:15 General: Appears in no apparent distress. Behavior is calm, cooperative, appropriate ll1 for age. General: Reports feeling ill for fatigue for. Pain: Complains of pain in mouth Pain currently is 8 out of 10 on a pain scale. Quality of pain is described as aching, Aggravated by eating. EENT: Reports nasal discharge. EENT: Reports mouth sores and mouth/gums painful. Neuro: Reports dizziness, weakness. Respiratory: Reports cough that is. Historical: - Allergies: 12:10 ambien; ll1 12:10 tramadol; ll1 12:10 Trazodone; ll1 - PMHx: 12:10 acid reflux; Depression; Diabetes mellitus; Diverticulitis; gastritis; ll1 - PSHx: 12:10 section; hysterectomy; ll1 - Immunization history:: Adult Immunizations up to date. - Infectious Disease History:: Denies. - Social history:: Smoking status: Patient reports the use of cigarette tobacco products, smokes one pack cigarettes per day. - Family history:: not pertinent. Screenin:10 [facility] ED Fall Risk Assessment (Adult) History of falling in the last 3 months, kj2 including since admission No falls in past 3 months (0 pts) Confusion or Disorientation No (0 pts) Intoxicated or Sedated No (0 pts) Impaired Gait No (0 pts) Mobility Assist Device Used No (0 pt) Altered Elimination No (0 pt) Score/Fall Risk Level 0 - 2 = Low Risk Maintained a safe environment, Hourly rounding (assess needs \T\ fall precautionary measures) done. Abuse screen: Denies threats or abuse. Denies injuries from another. Nutritional screening: No deficits noted. Tuberculosis screening: No symptoms or risk factors identified. Assessment: 12:10 General: Appears in no apparent distress. Behavior is cooperative. Pain: Complains of kj2 pain in mouth Pain currently is 5 out of 10 on a pain scale. Neuro: Level of Consciousness is awake, alert, obeys commands, Oriented to person, place, time, situation. Cardiovascular: Patient's skin is warm and dry. Respiratory: Airway is patent Respiratory effort is even, unlabored. : No signs and/or symptoms were reported regarding the genitourinary system. EENT: Reports pain in throat. 13:10 Reassessment: Patient appears in no apparent distress at this time. Patient and/or kj2 family updated on plan of care and expected duration. Pain level reassessed. Patient is alert, oriented x 3, equal unlabored respirations, skin warm/dry/pink. 13:59 Reassessment: Patient appears in no apparent distress at this time. Patient and/or kj2 family updated on plan of care and expected duration. Pain level reassessed. Patient is alert, oriented x 3, equal unlabored respirations, skin warm/dry/pink. 15:10 Reassessment: Patient appears in no apparent distress at this time. Patient and/or kj2 family updated on plan of care and expected duration. Pain level reassessed. Patient is alert, oriented x 3, equal unlabored respirations, skin warm/dry/pink. Vital Signs: 12:12 BP 110 / 68; Pulse 66; Resp 17; Temp 97.8; Pulse Ox 98% on R/A; Pain 8/10; ll1 13:10 BP 114 / 63; Pulse 67; Resp 18; Pulse Ox 100% on R/A; kj2 13:58 BP 138 / 73; Pulse 57; Resp 20; Pulse Ox 97% on R/A; kj2 15:10 BP 134 / 72; Pulse 60; Resp 18; Temp 98.2; Pulse Ox 100% ; kj2 12:12 Pain Scale: Adult ll1 ED Course: 12:09 Patient arrived in ED. ll1 12:09 Arm band placed on Patient placed in an exam room, on a stretcher. ll1 12:10 Patient has correct armband on for positive identification. Bed in low position. Call kj2 light in reach. Provided Education on: call light. 12:14 Corinne Roblero, RN is Primary Nurse. kj2 12:15 Triage completed. ll1 12:31 Jeffrey Flores MD is Attending Physician. marek 14:32 Chest Pa And Lat (2 Views) XRAY In Process Unspecified. EDMS 14:53 Benito Nunes DDS is Referral Physician. marek 15:10 No provider procedures requiring assistance completed. Patient did not have IV access kj2 during this emergency room visit. Administered Medications: 13:46 Drug: Ketorolac IM 60 mg IM once Route: IM; Site: left deltoid; kj2 15:12 Follow up: Response: No adverse reaction kj2 13:46 Drug: Amoxicillin-Clavulanate PO 875 mg PO once Route: PO; kj2 15:12 Follow up: Response: No adverse reaction kj2 13:46 Drug: [place] PO 10 mg-325 mg 1 tabs PO once Route: PO; kj2 15:11 Follow up: Response: No adverse reaction kj2 13:46 Drug: Ondansetron Oral Disintegrating Tablet Oral Disintegrating Tablet 8 mg PO once kj2 Route: PO; 15:11 Follow up: Response: No adverse reaction kj2 Medication: 12:20 VIS not applicable for this client. kj2 Outcome: 14:53 Discharge ordered by . marek 15:11 Discharged to home ambulatory, kj2 15:11 Condition: stable 15:11 Discharge instructions given to patient, Instructed on discharge instructions, follow up and referral plans. Demonstrated understanding of instructions, follow-up care, medications, Prescriptions given X 3, 15:28 Patient left the ED. ll1 Signatures: Dispatcher [employer] Jeffrey Gupta MD MD cha Lewis, Lynsay, RN RN ll1 Corinne Roblero RN RN kj2
--- NOTE | 2024-10-13 14:54 | EDPHYS ---
Physician Documentation [facility] Name: Aubree Zimmer Age: 59 yrs Sex: Female : 1965 Arrival Date: 10/13/2024 Time: 12:07 Bed 20 Private MD: SANDRA Physician Jeffrey Flores HPI: 10/13 13:31 This 59 yrs old Female presents to ER via EMS with complaints of Mouth marek Problem, Cough. 13:31 The patient presents with redness, swelling. The problem is located in the soft palate. marek Onset: The symptoms/episode began/occurred 2 day(s) ago. Duration: The symptoms are continuous, and are steadily getting worse. Modifying factors: The symptoms are alleviated by nothing, the symptoms are aggravated by chewing, food. Associated signs and symptoms: The patient has no apparent associated signs or symptoms. Severity of symptoms: At their worst the symptoms were mild, in the emergency department the symptoms are actually worse. The patient has experienced similar episodes in the past, a few times. Historical: - Allergies: 12:10 ambien; ll1 12:10 tramadol; ll1 12:10 Trazodone; ll1 - PMHx: 12:10 acid reflux; Depression; Diabetes mellitus; Diverticulitis; gastritis; ll1 - PSHx: 12:10 section; hysterectomy; ll1 - Immunization history:: Adult Immunizations up to date. - Infectious Disease History:: Denies. - Social history:: Smoking status: Patient reports the use of cigarette tobacco products, smokes one pack cigarettes per day. - Family history:: not pertinent. ROS: 13:31 Constitutional: Negative for fever, chills, and weight loss, Eyes: Negative for injury, marek pain, redness, and discharge, Neck: Negative for injury, pain, and swelling, Cardiovascular: Negative for chest pain, palpitations, and edema, Respiratory: Negative for shortness of breath, cough, wheezing, and pleuritic chest pain, Abdomen/GI: Negative for abdominal pain, nausea, vomiting, diarrhea, and constipation, Back: Negative for injury and pain, : Negative for injury, bleeding, discharge, and swelling, MS/Extremity: Negative for injury and deformity, Skin: Negative for injury, rash, and discoloration, Neuro: Negative for headache, weakness, numbness, tingling, and seizure, Psych: Negative for depression, anxiety, suicide ideation, homicidal ideation, and hallucinations, Allergy/Immunology: Negative for hives, rash, and allergies, Endocrine: Negative for neck swelling, polydipsia, polyuria, polyphagia, and marked weight changes, Hematologic/Lymphatic: Negative for swollen nodes, abnormal bleeding, and unusual bruising, 13:31 ENT: Positive for dental pain, RED TENDER TORUS PALITINI, Exam: 13:31 Constitutional: This is a well developed, well nourished patient who is awake, alert, marek and in no acute distress. Head/Face: Normocephalic, atraumatic. Eyes: Pupils equal round and reactive to light, extra-ocular motions intact. Lids and lashes normal. Conjunctiva and sclera are non-icteric and not injected. Cornea within normal limits. Periorbital areas with no swelling, redness, or edema. Neck: Trachea midline, no thyromegaly or masses palpated, and no cervical lymphadenopathy. Supple, full range of motion without nuchal rigidity, or vertebral point tenderness. No Meningismus. Chest/axilla: Normal chest wall appearance and motion. Nontender with no deformity. No lesions are appreciated. Cardiovascular: Regular rate and rhythm with a normal S1 and S2. No gallops, murmurs, or rubs. Normal PMI, no JVD. No pulse deficits. Respiratory: Lungs have equal breath sounds bilaterally, clear to auscultation and percussion. No rales, rhonchi or wheezes noted. No increased work of breathing, no retractions or nasal flaring. Abdomen/GI: Soft, non-tender, with normal bowel sounds. No distension or tympany. No guarding or rebound. No evidence of tenderness throughout. Back: No spinal tenderness. No costovertebral tenderness. Full range of motion. Skin: Warm, dry with normal turgor. Normal color with no rashes, no lesions, and no evidence of cellulitis. MS/ Extremity: Pulses equal, no cyanosis. Neurovascular intact. Full, normal range of motion., bilateral aka Neuro: Awake and alert, GCS 15, oriented to person, place, time, and situation. Cranial nerves II-XII grossly intact. Motor strength 5/5 in all extremities. Sensory grossly intact. Cerebellar exam normal. Normal gait. Psych: Awake, alert, with orientation to person, place and time. Behavior, mood, and affect are within normal limits. 13:31 Eyes: Periorbital structures: appear normal, no acute changes, Pupils: no acute changes, equal, round, and reactive to light and accomodation, Extraocular movements: intact throughout, Conjunctiva: normal, no acute changes, Corneas: are normal, no acute changes, Sclera: no appreciated abnormality, no acute changes, Anterior chamber: normal, Lids and lashes: appear normal, Vital Signs: 12:12 BP 110 / 68; Pulse 66; Resp 17; Temp 97.8; Pulse Ox 98% on R/A; Pain 8/10; ll1 13:10 BP 114 / 63; Pulse 67; Resp 18; Pulse Ox 100% on R/A; kj2 13:58 BP 138 / 73; Pulse 57; Resp 20; Pulse Ox 97% on R/A; kj2 15:10 BP 134 / 72; Pulse 60; Resp 18; Temp 98.2; Pulse Ox 100% ; kj2 12:12 Pain Scale: Adult ll1 MDM: 12:32 Medical Screening Exam initiated [facility] 13:37 Differential diagnosis: dental caries, gingivitis, dental abscess. Data reviewed: vital [facility] signs, nurses notes, lab test result(s), radiologic studies, plain films. Consideration of Admission/Observation Escalation of care including admission/observation considered. I considered the following discharge prescriptions or medication management in the emergency department Medications were administered in the Emergency Department. See MAR. Test considered but Not performed: Labs: NO CBC , NO COMP MET. Care significantly affected by the following chronic conditions: Diabetes, DIVERTICULITIES. 10/13 13:27 Order name: COVID-19 Ag + Flu A+B Ag; Complete Time: 14:38 [facility] 10/13 13:27 Order name: Group A Streptococcus Rapid; Complete Time: 14:38 [facility] 10/13 14:33 Order name: Throat Culture EDMS 10/13 13:27 Order name: Chest Pa And Lat (2 Views) XRAY; Complete Time: 14:53 [facility] 10/13 13:27 Order name: Ice pack; Complete Time: 13:46 [facility] Administered Medications: 13:46 Drug: Ketorolac IM 60 mg IM once Route: IM; Site: left deltoid; kj2 15:12 Follow up: Response: No adverse reaction kj2 13:46 Drug: Amoxicillin-Clavulanate PO 875 mg PO once Route: PO; kj2 15:12 Follow up: Response: No adverse reaction kj2 13:46 Drug: [place] PO 10 mg-325 mg 1 tabs PO once Route: PO; kj2 15:11 Follow up: Response: No adverse reaction kj2 13:46 Drug: Ondansetron Oral Disintegrating Tablet Oral Disintegrating Tablet 8 mg PO once kj2 Route: PO; 15:11 Follow up: Response: No adverse reaction kj2 Disposition Summary: 10/13/24 14:53 Discharge Ordered Notes: Location: Home marek Problem: new marek Symptoms: have improved marek Condition: Stable marek Diagnosis - Dental caries, unspecified - TENDER TORUS PALITINI marek - Cough marek - Acute upper respiratory infection, unspecified marek Followup: marek - With: Private Physician - When: 2 - 3 days - Reason: Recheck today's complaints, Continuance of care, Re-evaluation by your physician Followup: marek - With: Benito Nunes DDS - When: 2 - 3 days - Reason: Recheck today's complaints, Re-evaluation by your physician Discharge Instructions: - Discharge Summary Sheet marek - Dental Caries, Adult marek - Dental Pain marek - Steps to Quit Smoking marek - Upper Respiratory Infection, Adult marek - Cool Mist Vaporizer marek - Dental Pain, [id number] marek - Steps to Quit Smoking, [id number] marek - Diet and Dental Disease marek - Cough, Adult marek - and Smoking marek - Managing the Challenge of Quitting Smoking marek Forms: - Medication Reconciliation Form marek - Antibiotic Education marek - Prescription Opioid Use marek - Patient Portal Instructions [facility] - Leadership Thank You Letter [facility] - Work release form kj2 Prescriptions: - Augmentin 875-125 mg Oral Tablet - take 1 tablet ORAL route every 12 hours for 10 days; 20 tablet; Refills: 0, marek Product Selection Permitted - Ibuprofen 600 mg Oral tablet - take 1 tablet ORAL route every 6 hours As needed take with food; 20 tablet; marek Refills: 0, Product Selection Permitted - Tessalon Perles 100 mg Oral capsule - take 1 capsule ORAL route every 8 hours As needed; 30 capsule; Refills: 0, marek Product Selection Permitted Signatures: Dispatcher [employer] Jeffrey Gupta MD MD cha Lewis, Lynsay RN RN ll1 Osbaldo, Corinne, RN RN kj2
[2024-10-13 15:36] VITALS: BP 134/72; TEMP 98.2; O2SAT 100
== END 2024-10-13 15:28 | disposition home or self-care (01) ==
LOC: ER 12:07
DX: K02.9 Dental caries, unspecified (principal); R05.9 Cough, unspecified; J06.9 Acute upper respiratory infection, unspecified; Z11.52 Encounter for screening for COVID-19
CPT/HCPCS: 36415; 71046; 87070; 87428; 96372; 99284; Q0162